=== PATIENT | female | born 1955 | race Caucasian/White ===

== ENCOUNTER 2016-09-30 14:10 | Emergency (ER) | payer OTHER ==
[~2016-09-30] VITALS: Ht 160 cm; Wt 88.5 kg
[~2016-09-30 14:10] MED LIST: ALEVE220 MG PO; CLONAZEPAM1 MG PO; MOXIFLOXACIN H400 M1 PO; NASONEX0.05 MG/Ac NAS
[2016-09-30] MEDS ORDERED: GABAPENTIN300 M2 PO (15:43)
--- NOTE | 2016-09-30 15:43 | ED UPPER/LOWER EXTREMITY COMPL ---
History of Present Illness General Chief Complaint: Lower Extremity Problems Stated Complaint: BILATERAL LEG PAIN Source: patient Exam Limitations: no limitations Vital Signs & Intake/Output Vital Signs & Intake/Output Vital Signs Date Time Temp Pulse Resp B/P Pulse O2 O2 Flow FiO2 Ox Delivery Rate 09/30 1415 97.5 66 18 147/98 98 Room Air Allergies Coded Allergies: MDX - Codeine (GI UPSET 11/10/14) MDX - Morphine (GI UPSET 11/10/14) Reconcile Medications Clonazepam 1 MG TABLET 1 TAB PO QPM RESTLESS LEGS (Reported) Gabapentin 300 MG CAPSULE 1 CAP PO QHS NERVE PAIN (Reported) Meloxicam (Mobic) 15 MG TABLET 1 TAB PO DAILY PRN PAIN Mometasone Furoate (Nasonex) 0.05 MG/Actuation SPR 2 SPRAY UZAIR DAILY SINUSITIS MOXIFLOXACIN HCL (Moxifloxacin HCl) 400 MG TABLET 1 TAB PO DAILY SINUSITIS Naproxen Sodium (Aleve) 220 MG TABLET 1 TAB PO PRN PAIN (Reported) Triage Note: 61 Y/O FEMALE C/O PAIN TO BILATERAL FEET, CALVES, THIGHS X OVER 1 YEAR. STATES SHE HAS BEEN TAKING GABAPENTIN FOR SAME BUT IT IS NOT WORKING. STATES "ITS A BURNING PULLING PAIN". PT AMBULATORY WITH STEADY GAIT. DENIES NOTING SWELLING, REDNESS OR BRUISING. Triage Nurses Notes Reviewed? yes Onset: Gradual Duration: worse persistent since, 1 year Timing: recent history Severity: moderate Severity Numbers: 8 Pain/Injury Location: Bilateral: Leg. Method of Injury: unknown Modifying Factors: Improves With: immobilization, pain medication. Worsens With: movement. HPI: Patient is a 61-year-old female presenting to the emergency department with chief complaint of bilateral leg pain nothing going on for the past one year. She reports that the pain has been getting getting worse over the past 1 week. She called her primary care physician who told her to come to the emergency department to rule out blood clots in her calves. She reports she's not had any imaging done on her legs. They thought it was nerve pain, she is has also seen a manufacturing engineering director. No one can seem to "diagnosis" her problem. Denies any new injury. Pain is worse at nighttime. Also history of restless leg syndrome. Takes gabapentin at nighttime and lorazepam. Denies numbness or tingling. She describes the pain as burning. Currently moderate. Has been taking ibuprofen with little relief. (CHELSEA MORRIS) Past History Travel History Traveled to [place] past 21 day No Medical History Any Pertinent Medical History? see below for history Neurological: RESTLESS LEG SYNDROME EENT: NONE Cardiovascular: NONE Respiratory: NONE Gastrointestinal: NONE Hepatic: NONE Renal: NONE Musculoskeletal: NONE Psychiatric: NONE Endocrine: NONE Blood Disorders: NONE FAMILY NURSE/Reproductive: endometriosis History of MRSA: No History of VRE: No History of CDIFF: No Surgical History Surgical History: non-contributory Psychosocial History Who do you live with Family Services at Home None What is your primary language Bulgarian Tobacco Use: Never used Family History Hx Contributory? No (CHELSEA MORRIS) Review of Systems Review of Systems Constitutional: Reports: no symptoms. Comments Review of systems: See HPI, All other systems negative. Constitutional, no chills fever or weight loss HEENT: No visual changes no sore throat no congestion Cardiovascular: No chest pain ,palpitation , orthopnea or ankle swelling Skin, no jaundice no rashes Respiratory: No dyspnea cough sputum or hemoptysis GI: No nausea no vomiting Muscle skeletal: no back pain, no neck pain, Neurologic: No numbness no confusion Psych: No increased stress anxiety or depression,. Heme/endocrine: No bruising no bleeding no polyuria or polydipsia Immunology: No splenectomy or history of AIDS (CHELSEA MORRIS) Physical Exam Physical Exam General Appearance: well developed/nourished, no apparent distress, alert, awake , comfortable Comments: Well-developed well-nourished person in no acute distress HEENT: Pupils equally round and reactive to light and accommodation. Nose is atraumatic. Neck: Normal inspection Back: Nontender, no CVA tenderness. Full range of motion Cardiovascular: normal JVP Respiratory: No respiratory distress. Extremity: No edema, positive bilateral calf tenderness to palpation. Calves are soft. No erythema. Pedal pulses are 2+ bilaterally. Full range of motion of lower extremities without difficulty or pain. Negative Childers Test bilaterally. Neuro: Alert oriented x3, motor sensory normal Skin: No appreciable rash on exposed skin, skin is warm and dry. Psych: Mood and affect is normal, memory and judgment is normal. (CHELSEA MORRIS) Progress Differential Diagnosis: contusion, dislocation, DVT, gout, sprain, tendon injury , neuropathic pain Plan of Care: Orders Procedure Date/time Status US-EXT BILAT VENOUS DOPPLER 09/30 1541 Active Diagnostic Imaging: Viewed by Me: Ultrasound. Discussed w/RAD: Ultrasound. Radiology Impression: PATIENT: ARMOND DALE PRESENT AGE: 61 PATIENT ACCOUNT NO: [id number] : 59 LOCATION: [facility], [place] ORDERING PHYSICIAN: CHELSEA CAMARGO SERVICE DATE: 09/30/16-1541 EXAM TYPE: US - US-EXT BILAT VENOUS DOPPLER EXAMINATION: US TRIPLEX LOWER EXTREMITY, BILATERAL CLINICAL INFORMATION: Bilateral calf pain. COMPARISON: None. TECHNIQUE: Color- flow triplex imaging with spectral analysis and compression Doppler were performed on the bilateral lower extremities. FINDINGS: Respiratory variation, normal compression and augmented flow are noted throughout the bilateral lower extremities. The visualized common femoral vein, proximal greater saphenous vein , femoral vein, profunda femoral vein, popliteal vein and visualized mid calf venous segments show no evidence of deep venous thrombosis. There is no Hernandez's cyst. IMPRESSION: Normal triplex scan without evidence of deep venous thrombosis involving the bilateral lower extremities. Comments: GIVEN IM TORADOL ON ARRIVAL FOR PAIN. LIKELY CHRONIC NEUORPATHY. NEGATIVE US. WILL INCREASE GABAPENTIN DOSING. PRN MOBIC. PCP FOLLOW UP. PT NON- TOXIC. (CHELSEA MORRIS) Departure Departure Time of Disposition: 1643 Disposition: HOME OR SELF CARE Condition: Stable Clinical Impression Primary Impression: Leg pain Qualifiers: Laterality: bilateral Qualified Codes: M79.604 - Pain in right leg; M79.605 - Pain in left leg Secondary Impressions: Neuropathic pain Referrals: HILARY CAMARGO,ELPIDIO SOLIMAN (PCP/Family) Additional Instructions: TAKE MOBIC DAILY TO HELP WITH PAIN AND INFLAMMATION. INCREASE DOSE OF GABAPENTIN TO 2 TABS A DAY FOR 2 DAYS THEN 3 TABES A DAY AFTER THAT. FOLLOW UP WITH YOUR PRIMARY CARE DOCTOR TO MANAGE YOUR PAIN. RETURN FOR WORSENING SYMPTOMS OR CONCERNS. Departure Forms: Customer Survey General Discharge Information Prescriptions: Current Visit Scripts Meloxicam (Mobic) 1 TAB PO DAILY PRN PAIN #14 TAB (CHELSEA MORRIS) PA/MODEL MAKING SUPERVISOR Co-Sign Statement Statement: ED Attending supervision documentation- [] I saw and evaluated the patient. I have also reviewed all the pertinent lab results and diagnostic results. I agree with the findings and the plan of care as documented in the PA's/MODEL MAKING SUPERVISOR's documentation. [X] I have reviewed the ED Record and agree with the PA's/MODEL MAKING SUPERVISOR's documentation. [] Additions or exceptions (if any) to the PAs/MODEL MAKING SUPERVISOR's note and plan are summarized below: [] (BRADY SANDHU,JULIANA)
--- NOTE | 2016-09-30 16:38 | ULTRASOUND REPORT ---
EXAMINATION: US TRIPLEX LOWER EXTREMITY, BILATERAL CLINICAL INFORMATION: Bilateral calf pain. COMPARISON: None. TECHNIQUE: Color-flow triplex imaging with spectral analysis and compression Doppler were performed on the bilateral lower extremities. FINDINGS: Respiratory variation, normal compression and augmented flow are noted throughout the bilateral lower extremities. The visualized common femoral vein, proximal greater saphenous vein, femoral vein, profunda femoral vein, popliteal vein and visualized mid calf venous segments show no evidence of deep venous thrombosis. There is no Hernandez's cyst. IMPRESSION: Normal triplex scan without evidence of deep venous thrombosis involving the bilateral lower extremities.
[2016-09-30] MEDS ORDERED: MOBIC15 M1 PO (16:46)
[2016-09-30 17:15] VITALS: BP 139/72
== END 2016-09-30 17:14 ==
LOC: ERH 14:10
DX: M79.605 Pain in left leg (principal); G62.9 Polyneuropathy, unspecified
CPT/HCPCS: 93970; 96372; J1885

== ENCOUNTER 2017-11-13 12:53 | Inpatient (IN) | payer OTHER ==
[~2017-11-13] VITALS: Ht 154.9 cm; Wt 88.0 kg
[~2017-11-13 12:53] MED LIST changes: +CLONAZEPAM1 M2 PO; -CLONAZEPAM1 MG PO; +GABAPENTIN300 M2 PO; +MOBIC15 M1 PO; +PREDNISONE10 M2 PO; +PROAIR HFA8.5 GM INH; +TESSALON PERLE100 M1 PO; +TRAMADOL HCL50 M1 PO
--- NOTE | 2017-11-13 18:31 | ED DYSPNEA/ASTHMA COMPLAINT ---
History of Present Illness General Chief Complaint: Dyspnea (COPD, CHF, Other) Stated Complaint: SOB COUGH WHEEZING Source: patient Exam Limitations: no limitations Vital Signs & Intake/Output Vital Signs & Intake/Output Vital Signs Date Time Temp Pulse Resp B/P B/P Pulse O2 O2 Flow FiO2 Mean Ox Delivery Rate 11/13 2239 96 11/13 2220 97.7 94 18 131/63 93 Room Air 11/13 1939 96 Room Air 11/13 1934 97.3 92 20 140/67 96 Room Air / 1924 94 / 1639 98.6 85 20 143/70 96 Room Air / 1443 100.8 / 1440 100.8 100 22 135/66 98 Room Air / 1306 97.4 99 22 163/90 97 Room Air Allergies Coded Allergies: codeine (GI UPSET 11/12/17) morphine (VOMITS VIOLENTLY 11/12/17) Reconcile Medications Albuterol Sulfate (Proair Hfa) 90 MCG HFA.AER.AD 2 PUF INH Q4H PRN RESP. ( Reported) Benzonatate (Tessalon Perle) 100 MG CAPSULE 1 CAP PO TID PRN cough Clonazepam (Unknown Strength) TABLET 1-2 TAB PO QPM RLS (Reported) Gabapentin 300 MG CAPSULE 1 CAP PO TID NERVE PAIN (Reported) Meloxicam (Mobic) 15 MG TABLET 1 TAB PO DAILY PRN PAIN Prednisone 10 MG TABLET 1 TAB PO DAILY PRN bronchitis 3 tabs po x 3 days, 2 tabs po x 3 days, 1 tab po x 3 days Tramadol HCl 50 MG TABLET 1 TAB PO BIDP PRN PAIN (Reported) Triage Note: C/O SOB, WORSENING COUGH AND CHEST DISCOMFORT X 7 DAYS. SEEN HERE FOR SAME, PUT ON TAMBIFLU, STEROID TAPER AND ZITHROMAX, ALSO SEEN [facility] W[facility], DXD WITH BRONCHITIS. TAMBIFLU, AND STEROID TAPER. Triage Nurses Notes Reviewed? yes Onset: Abrupt Duration: day(s): (6) Timing: recent history Severity: moderate, severe HPI: 62-year-old female comes into the emergency room for further evaluation of shortness of breath and coughing has been going on last Monday. She reports that she's had some mucus production at times before for the most part she feels that she cannot getting the mucus up. She denies any vomiting. She denies any chest pain. She's had some intermittent fevers. She was diagnosed with influenza by her PCP as well as urgent care center. She finished a course of Tamiflu. She was seen here yesterday and diagnosed bronchitis. She has 1 more day on a Z-Chris. She reports that she had increased shortness of breath last night. She is very displeased with the fact that she waited 5 hours on the waiting room and she is complaining that she is here in the hallway and refused to be seen in the hallway. She does not want any treatment here in the hallway. (Juan Baker) Past History Travel History Traveled to [place] past 21 day No Medical History Any Pertinent Medical History? 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 No (Juan Baker) Review of Systems Review of Systems Constitutional: Reports: see HPI. EENTM: Reports: see HPI. Respiratory: Reports: see HPI. Cardiovascular: Reports: no symptoms. GI: Reports: no symptoms. Genitourinary: Reports: no symptoms. Musculoskeletal: Reports: no symptoms. Skin: Reports: no symptoms. Neurological/Psychological: Reports: no symptoms. Hematologic/Endocrine: Reports: no symptoms. Immunologic/Allergic: Reports: no symptoms. All Other Systems: Reviewed and Negative (Juan Baker) Physical Exam Physical Exam General Appearance: well developed/nourished, alert, awake Head: atraumatic Eyes: Bilateral: normal appearance. Ears, Nose, Throat: normal ENT inspection, hearing grossly normal Neck: normal inspection Respiratory: decreased breath sounds, rhonchi, wheezing Cardiovascular: regular rate/rhythm Extremities: normal inspection Neurologic/Psych: awake, alert, oriented x 3, normal gait Skin: intact, normal color Core Measures ACS in differential dx? No CVA/TIA Diagnosis No Sepsis Present: No Sepsis Focused Exam Completed? No (Gilson CAMARGO,Juan) Progress Differential Diagnosis: asthma, AMI, bronchitis, costochondritis, CHF, COPD, musculoskeletal pain, pericarditis, pulmonary embolism, pneumonia, rib fracture, unstable angina Plan of Care: Orders Procedure Date/time Status Nothing by Mouth 11/14 B Active Saline Lock 11/13 2233 Active Misc Message 11/13 2233 Active ED Holding Orders 11/13 2233 Active Admit to inpatient 11/13 2233 Active Vital Signs 11/13 2233 Active Code Status 11/13 2233 Active D-DIMER 11/13 185 Complete TROPONIN LEVEL 11/13 1830 Complete COMPREHENSIVE METABOLIC PANEL 11/13 1830 Complete CBC WITHOUT DIFFERENTIAL 11/13 1830 Active EKG 11/13 125 Active Laboratory Tests 11/13/17 1930: Anion Gap 15, Estimated GFR > 60, BUN/Creatinine Ratio 26.7 H, Glucose 114 H, Calcium 9.8, Total Bilirubin 0.5, AST 16, ALT 28, Alkaline Phosphatase 98, Troponin I < 0.01, Total Protein 7.3, Albumin 4.7, Globulin 2.6, Albumin/ Globulin Ratio 1.8, D-Dimer High Sensitivty 402 H, CBC w Diff MAN DIFF ORDERED, RBC 4.40, MCV 86.9, MCH 29.6, MCHC 34.1, RDW 13.7, MPV 7.6, Gran % 83.4 H, Lymphocytes % 13.5 L, Monocytes % 2.8, Eosinophils % 0, Basophils % 0.3, Absolute Granulocytes 13.4 H, Segmented Neutrophils Pending, Absolute Lymphocytes 2.2, Absolute Monocytes 0.5, Absolute Eosinophils 0, Absolute Basophils 0.1 Microbiology 11/13 1830 NASOPHARYN: Influenza Virus A & B Rapid Smear - CAN Cancelled: Cancelled via OE: Patient Refused Diagnostic Imaging: Viewed by Me: CT Scan. Discussed w/RAD: CT Scan. Radiology Impression: PATIENT: ARMOND DALE PRESENT AGE: 62 PATIENT ACCOUNT NO: [id number] : 59 LOCATION: [facility] ([place]) ORDERING PHYSICIAN: Juan CAMARGO SERVICE DATE: 11/13/17 EXAM TYPE: CAT - CTA CHEST-PULMONARY EMBOLISM EXAMINATION: CT ANGIOGRAM CHEST WITH AND WITHOUT CONTRAST (CT PULMONARY ANGIOGRAM FOR PE) CLINICAL INFORMATION: Presumptive diagnosis shortness of breath, cough, elevated D-dimer, rule out PE. COMPARISON: None TECHNIQUE: Prior to contrast administration, noncontrast localization images were obtained. Subsequently, multidetector volumetric imaging was performed from the thoracic inlet to below the diaphragms following the administration of 80 mL Omnipaque 350 intravenous contrast. No contrast reaction reported. Sagittal, coronal, and MIP oblique sagittal reformatted images were obtained on the CT workstation, uploaded to PACS, and reviewed. FINDINGS: QUALITY OF STUDY/CONTRAST BOLUS: Satisfactory. PULMONARY ARTERIES: No evidence of filling defects to indicate central or segmental pulmonary emboli. THORACIC AORTA: No aneurysm or dissection. LUNG: Linear bands of opacity in the right lower lung, likely atelectasis. No focal consolidation. Mild linear opacities in the inferior lingula and left lower lobe, likely atelectasis. There are foci of reticular nodular opacities, with tree-in-bud configuration in the left lower lobe. This may reflect infectious or inflammatory process. PLEURA: No pleural effusion or pneumothorax. MEDIASTINUM: Normal heart size. No pericardial effusion. No hilar or mediastinal lymphadenopathy. No evidence of septal bowing or right heart strain. Subtle hypodensity in the left thyroid lobe. CHEST WALL/ AXILLA: No axillary or internal mammary lymphadenopathy. OSSEOUS STRUCTURES: No acute or suspicious osseous abnormality. Multilevel degenerative changes in the spine. UPPER ABDOMEN: Unremarkable. No reflux of contrast into the hepatic veins to suggest elevated right heart pressures. IMPRESSION: 1. No evidence of central or segmental pulmonary emboli. 2. Foci of reticular nodular opacities with tree- in-bud configuration in the left lower lobe. Differential consideration include infectious or inflammatory processes. Follow-up imaging post-treatment can be obtained to ensure resolution. 3. Foci of atelectasis in bilateral lungs as detailed above. 4. Indeterminate subtle hypodensity in the left thyroid lobe. This can be further characterized with a nonemergent thyroid ultrasound, as clinically warranted. VTE: Negative. DICTATED BY: Julian Nascimento MD DATE/TIME DICTATED:11/13/172147 SALES SUPPORT ADVISOR:FERNY DATE/TIME TRANSCRIBED:2147 CONFIDENTIAL, DO NOT COPY WITHOUT APPROPRIATE AUTHORIZATION. < Electronically signed in Other Vendor System> SIGNED BY: Julina Nascimento MD 03/01/263 Initial ED EKG: normal sinus rhythm, rate (99) Comments: 11/13/2017 7:00:09 PM Discharge nurse was notified of the patient's complaints. Patient is going to be moved into room 11 shortly in a few minutes. (Juan Baker) Departure Departure Disposition: STILL A PATIENT Condition: Stable Referrals: Marianela Rodriguez (PCP/Family) Departure Forms: Customer Survey General Discharge Information Admission Note Spoke With: Sarthak Alcala MD Documentation of Exam: Documentation of any treatments & extenuating circumstances including Concerns Regarding Discharge (functional status, medication knowledge or non-compliance, living conditions, etc.) that warrant an admission rather than observation: Patient is still tachypnea after DuoNeb and IV Solu-Medrol. She has failed outpatient treatment with oral antibiotics and oral prednisone. With minimal ambulation she gets very short of breath and winded and tachypnic. She will require IV steroids. IV antibiotics. Pulmonary consult. Former smoker. supplemental oxygen. Medically not safe for discharge at this time. On reevaluation she is still wheezing and rhonchorous. (Juan Baker) Departure Clinical Impression Primary Impression: Pneumonia Secondary Impressions: Bronchitis, Sepsis PA/DIRECTOR OF CURRICULUM AND INSTRUCTION Co-Sign Statement Statement: ED Attending supervision documentation- [x] I saw and evaluated the patient. I have also reviewed all the pertinent lab results and diagnostic results. I agree with the findings and the plan of care as documented in the PA's/DIRECTOR OF CURRICULUM AND INSTRUCTION's documentation. 11/13/17, 22:37... pt with dyspnea at rest, wheezing... failed outpatient abx, meets criteria for sepsis... merits admission for iv steroids/iv abx, 02 support. [] I have reviewed the ED Record and agree with the PA's/DIRECTOR OF CURRICULUM AND INSTRUCTION's documentation. [] Additions or exceptions (if any) to the PAs/DIRECTOR OF CURRICULUM AND INSTRUCTION's note and plan are summarized below: [] (Joseph SANDHU,Guillaume Blood) Critical Care Note Critical Care Note Critical Care Time: 30-74 min (40) (Juan Baker) Critical Care Note Critical Care Time: 30-74 min (Joseph SANDHU,Guillaume Blood)
[2017-11-13 19:46] LABS: ABSOLUTE BASOPHIL COUNT 0.1 /CUMM (0.0-0.2); ABSOLUTE EOSINOPHIL COUNT 0 /CUMM (0.0-0.7); ABSOLUTE GRANULOCYTE CT 13.4 /CUMM (1.4-6.5); ABSOLUTE LYMPH COUNT 2.2 /CUMM (1.2-3.4); ABSOLUTE MONOCYTE COUNT 0.5 /CUMM (0.10-0.60); BASOPHIL % 0.3 % (0.0-2.0); EOSINOPHIL % 0 % (0-5); HEMATOCRIT 38.2 % (37-47); MEAN CORPUSCULAR HGB 29.6 PG (27.0-31.0); MEAN CORPUSCULAR HGB CONC 34.1 G/DL (33.0-37.0); MEAN CORPUSCULAR VOLUME 86.9 FL (81.0-99.0); MEAN PLATELET VOLUME 7.6 FL (7.4-10.4); PLATELET COUNT 351 /CUMM (130-400); RBC DISTRIBUTION WIDTH 13.7 % (11.5-14.5)
[2017-11-13 19:51] LABS: GRANULOCYTE % 83.4 % (42.2-75.2); WHITE BLOOD CELL COUNT 16.1 /CUMM (4.8-10.8)
--- NOTE | 2017-11-13 22:23 | CT SCAN REPORT ---
EXAMINATION: CT ANGIOGRAM CHEST WITH AND WITHOUT CONTRAST (CT PULMONARY ANGIOGRAM FOR PE) CLINICAL INFORMATION: Presumptive diagnosis shortness of breath, cough, elevated D-dimer, rule out PE. COMPARISON: None TECHNIQUE: Prior to contrast administration, noncontrast localization images were obtained. Subsequently, multidetector volumetric imaging was performed from the thoracic inlet to below the diaphragms following the administration of 80 mL Omnipaque 350 intravenous contrast. No contrast reaction reported. Sagittal, coronal, and MIP oblique sagittal reformatted images were obtained on the CT workstation, uploaded to PACS, and reviewed. FINDINGS: QUALITY OF STUDY/CONTRAST BOLUS: Satisfactory. PULMONARY ARTERIES: No evidence of filling defects to indicate central or segmental pulmonary emboli. THORACIC AORTA: No aneurysm or dissection. LUNG: Linear bands of opacity in the right lower lung, likely atelectasis. No focal consolidation. Mild linear opacities in the inferior lingula and left lower lobe, likely atelectasis. There are foci of reticular nodular opacities, with tree-in-bud configuration in the left lower lobe. This may reflect infectious or inflammatory process. PLEURA: No pleural effusion or pneumothorax. MEDIASTINUM: Normal heart size. No pericardial effusion. No hilar or mediastinal lymphadenopathy. No evidence of septal bowing or right heart strain. Subtle hypodensity in the left thyroid lobe. CHEST WALL/AXILLA: No axillary or internal mammary lymphadenopathy. OSSEOUS STRUCTURES: No acute or suspicious osseous abnormality. Multilevel degenerative changes in the spine. UPPER ABDOMEN: Unremarkable. No reflux of contrast into the hepatic veins to suggest elevated right heart pressures. IMPRESSION: 1. No evidence of central or segmental pulmonary emboli. 2. Foci of reticular nodular opacities with tree-in-bud configuration in the left lower lobe. Differential consideration include infectious or inflammatory processes. Follow-up imaging post-treatment can be obtained to ensure resolution. 3. Foci of atelectasis in bilateral lungs as detailed above. 4. Indeterminate subtle hypodensity in the left thyroid lobe. This can be further characterized with a nonemergent thyroid ultrasound, as clinically warranted. VTE: Negative.
--- NOTE | 2017-11-13 23:18 | History & Physical ---
Felipe SANDHU,Lyn 11/13/17 0919: General Information and [facility] MD Statement: I have seen and personally examined ARMOND PA and documented this H&P. The patient is a 62 year old F who presented with a patient stated chief complaint of dyspnea, cough, wheezing for 6 days Source of Information: patient, old records Exam Limitations: no limitations History of Present Illness: Patient is a 62-year-old female with a past medical history of restless leg syndrome, endometriosis, borderline diabetes, chronic lower back pain, arthritis that comes to see us for dyspnea, cough, wheezing last Monday. The patient states that on she called her primary care doctor who prescribed her Tamiflu. The next day, when her cough was worse, she went to urgent care who did a chest x-ray and gave her breathing treatments and a course of azithromycin. When this did nothing to help her respiratory symptoms she came to see us yesterday, had chest x-ray which showed no evidence of acute cardiopulmonary process, was given DuoNeb treatments, Solu-Medrol, Tessalon Perles, Mucinex, IV azithromycin, discharged on a prednisone taper. However, today, the patient states that she feels worse. She states that her wheezing has gotten worse, shortness of breath, she has a cough, now productive of yellow phlegm. She denies any fever, chills, diaphoresis, chest pain, palpitations, orthopnea, shortness of breath on exertion. She states that last night she vomited twice. The patient denies any sick contacts or travel history. No industrial or occupational exposures to respiratory irritants. The patient also denies any constipation/diarrhea, hot or cold intolerance, skin changes, weight changes, hoarseness, weakness, muscle pains other than her chronic back pain, thinning hair, depression, known enlargement of thyroid gland, tremor, palpitations. 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 The patient states that she smoked for 20 years, 4-5 cigarettes a day but quit 8 years ago. She states that she has no issues with alcohol, does no drugs. Allergies/Medications Allergies: Coded Allergies: codeine (GI UPSET 11/12/17) morphine (VOMITS VIOLENTLY 11/12/17) Home Med list Albuterol Sulfate (Proair Hfa) 90 MCG HFA.AER.AD 2 PUF INH Q4H PRN RESP. ( Reported) Benzonatate (Tessalon Perle) 100 MG CAPSULE 1 CAP PO TID PRN cough Clonazepam (Unknown Strength) TABLET 1-2 TAB PO QPM RLS (Reported) Gabapentin 300 MG CAPSULE 1 CAP PO TID NERVE PAIN (Reported) Meloxicam (Mobic) 15 MG TABLET 1 TAB PO DAILY PRN PAIN Prednisone 10 MG TABLET 1 TAB PO DAILY PRN bronchitis 3 tabs po x 3 days, 2 tabs po x 3 days, 1 tab po x 3 days Tramadol HCl 50 MG TABLET 1 TAB PO BIDP PRN PAIN (Reported) Past History Travel History Traveled to [place] past 21 day No Medical History Neurological: RESTLESS LEG SYNDROME EENT: NONE Cardiovascular: NONE Respiratory: NONE Gastrointestinal: NONE Hepatic: NONE Renal: NONE Musculoskeletal: chronic back pain Psychiatric: NONE Endocrine: NONE Blood Disorders: NONE 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 Psychosocial History Services at Home: None ETOH Use: occasional use Review of Systems Review of Systems Constitutional: Reports: no symptoms. EENTM: Reports: no symptoms. Cardiovascular: Reports: no symptoms. Respiratory: Reports: cough, short of breath, sputum production, wheezing. GI: Reports: no symptoms. Genitourinary: Reports: no symptoms. Musculoskeletal: Reports: back pain. Skin: Reports: no symptoms. Neurological/Psychological: Reports: no symptoms. Hematologic/Endocrine: Reports: no symptoms. Immunologic/Allergic: Reports: no symptoms. All Other Systems: Reviewed and Negative Exam & Diagnostic Data Last 24 Hrs of Vital Signs/I&O Vital Signs Date Time Temp Pulse Resp B/P B/P Pulse O2 O2 Flow FiO2 Mean Ox Delivery Rate 11/13 2239 96 11/13 2220 97.7 94 18 131/63 93 Room Air / 1939 96 Room Air / 193 97.3 92 20 140/67 96 Room Air / 1924 94 / 1639 98.6 85 20 143/70 96 Room Air / 1443 100.8 / 1440 100.8 100 22 135/66 98 Room Air 03/ 1306 97.4 99 22 163/90 97 Room Air Intake & Output 11/14 0800 11/14 0000 11/13 1600 Intake Total Output Total Balance Patient 194 lb Weight Weight Reported by Patient Measurement Method Physical Exam General Appearance Alert, Oriented X3, Cooperative, Mild Distress Skin No Rashes, No Breakdown, No Significant Lesion Skin Temp/Moisture Exam: Warm/Dry Sepsis Skin Exam (color): Normal for Ethnicity HEENT Atraumatic, PERRLA, EOMI, Mucous Membr. moist/pink Neck Supple, No JVD, No thryomegaly Lymphatic no lymphadenopathy Cardiovascular Regular Rate, Normal S1, Normal S2, No Murmurs, Gallops, Rubs Lungs decreased breath sounds, rhonchi, wheezing throughout Abdomen Normal Bowel Sounds, Soft, No Tenderness, No Hepatospenomegaly, No Masses Neurological Normal Speech Extremities No Clubbing, No Cyanosis, No Edema, Normal Pulses, No Tenderness/ Swelling Vascular Normal Pulses, Pulses Symmetrical Sepsis Peripheral Pulse Location: Radial Sepsis Peripheral Pulse Exam: Normal Sepsis Cap Refill Exam: <2 Sec Last 24 Hrs of Labs/Dinh: Laboratory Tests 11/13/17 1930: Anion Gap 15, Estimated GFR > 60, BUN/Creatinine Ratio 26.7 H, Glucose 114 H, Calcium 9.8, Total Bilirubin 0.5, AST 16, ALT 28, Alkaline Phosphatase 98, Troponin I < 0.01, Total Protein 7.3, Albumin 4.7, Globulin 2.6, Albumin/ Globulin Ratio 1.8, D-Dimer High Sensitivty 402 H, CBC w Diff MAN DIFF ORDERED, RBC 4.40, MCV 86.9, MCH 29.6, MCHC 34.1, RDW 13.7, MPV 7.6, Gran % 83.4 H, Lymphocytes % 13.5 L, Monocytes % 2.8, Eosinophils % 0, Basophils % 0.3, Absolute Granulocytes 13.4 H, Segmented Neutrophils 87 H, Absolute Lymphocytes 2.2, Lymphocytes 11 L, Monocytes 2, Absolute Monocytes 0.5, Absolute Eosinophils 0, Absolute Basophils 0.1, Platelet Estimate VERIFIED BY SMEAR, Normocytic RBCs VERIFIED, Normochromic RBCs VERIFIED, Fld Total RBCs Counted 100 Microbiology 11/14 20 URINE ROUT: Legionella Antigen - COMP 11/14 20 URINE ROUT: Streptococcus pneumoniae Antigen (M - COMP 11/14 18 LOWER RESP: Respiratory Culture - ORD 03/06 0019 LOWER RESP: Gram Stain - ORD 11/13 1831 NASOPHARYN: Influenza Virus A & B Rapid Smear - CAN Cancelled: Cancelled via OE: Patient Refused Assessment/Plan Assessment: Patient is a 62-year-old female with a past medical history of restless leg syndrome, endometriosis, borderline diabetes, chronic lower back pain, arthritis that comes to see us for dyspnea, cough, wheezing last Monday. Prescribed Tamifu and a course of azithromycin from urgent care and her PCP. Came to our ED yesterday, had chest x-ray which showed no evidence of acute cardiopulmonary process, was given treatment for bronchitis including steroid taper. Now returns with same symptoms. In the ED, patient found to have initial temperature 97.4 which increased to 100.8, pulse from 85-100, respiratory rate around 20, blood pressure 163/90 on admission that decreased to 131/63, good oxygen saturation on room air. WBC count found to be 16.1 with high granulocytes, d-dimer of 402, all other labs normal including troponin. Chest x-ray done yesterday found no evidence of acute cardiopulmonary process. CTA today showed no PE but foci of reticular nodule opacities with "tree-in-bud" configuration and left lower lobe suggestive of infectious or inflammatory process, atelectasis, and an indeterminate subtle hypodensity in the left thyroid lobe. EKG showed normal sinus rhythm at a rate of 99. Thus patient is septic secondary to pneumonia. Patient's differential includes pneumonia, bronchitis, COPD (the patient has no history of COPD diagnosed), PE, acute coronary syndrome, CHF. She does have a history of smoking. She is febrile, tachycardic, with elevated wbc but chest x- ray from yesterday shows no evidence of pneumonia, however evidence of pneumonia on CTA so pneumonia is working diagnosis. CTA shows no evidence of PE. Troponin and EKG negative for acute coronary syndrome. Evidence of CHF not seen on chest x-ray although patient has never had echocardiogram. Additionally hypodensity was found in the patient's left thyroid lobe which will need to be worked up. Of note patient has had no symptoms of hypo/hyperthyroidism. Plan Upper respiratory symptomsm sepsis secondary to pneumonia - resistant to treatment for solely bronchitis. -Urine strep and Legionella antigens -Flu swab not done, refused by patient and she states that she was already diagnosed with the flu -Ceftriaxone 1 g daily -Azithromycin 500 mg daily -Solu-Medrol 40 every 8 for wheezing -Mucinex 600 mg twice a day -TRC/nebs -Lower respiratory culture Thyroid nodule seen on CTA -Thyroid function tests with potential ultrasound/biopsy depending on results Chronic medical problems -Clonopin and gabapentin for patient's restless leg syndrome -Tramadol and meloxicam for chronic back pain and arthritis Lovenox and Alps for DVT prophylaxis Regular diet Full code As Ranked By This Provider Problem List: 1. Bronchitis 2. Pneumonia Core Measures/Misc (05/28) Acute Coronary Syndrome ACS Diagnosis: No Congestive Heart Failure Congestive Heart Failure Diagnosis No Cerebrovascular Accident CVA/TIA Diagnosis: No VTE (View Protocol) VTE Risk Factors Acute Medical Illness No Mechanical VTE Prophylaxis d/t N/A MechProphylax Ordered No VTE Pharm Prophylaxis d/t NA PharmProphylax ordered Sepsis (View protocol) Sepsis Present: Yes Fredrick SANDHU, [facility] 11/14/17 0815: Attending MD Review Statement Attending Statement Attending MD Statement: examined this patient, discuss w/resident/PA/ORTHOPEDIC CAST SPECIALIST, agreed w/resident/PA/ORTHOPEDIC CAST SPECIALIST, reviewed images, amended to note Attending Assessment/Plan: 62 yo F with h/o RLS, borderline diabetes, chronic back pain (follows Dr. Bedoya pain management), is a former smoker, who is here for evaluation of worsening dyspnea, cough and wheezing. Symptoms are ongoing for the past 1 week, with cough/ fevers - initially PCP prescribed her Tamiflu, since cough did not get better patient was seen at an Urgent care tested flu negative and was prescribed Zpak for bronchitis. Despite this her symptoms did not get better, so she came to [place] [facility] 1 day prior, was prescribed tessalon and prednisone. She reports her breathing got worse with wheezing and hence she came to ER. She c/o congestion and is unable to bring up phlegm. She has never been diagnosed with COPD or asthma. 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 Vitals: Tmax 100.8, otherwise stable. She was ambulated in the ER, sats were 94% RA but she was evidently short of breath. Chest b/l expiratory wheeze, reduced breath sounds+. Labs: WBC 16.1, D-dimer 402, trop neg. Chest CTA: no PE. Foci of reticular nodular opacities with tree-in-bud appearance in left lower lobe. Atelectasis in bilateral lungs. Hypodensity in left thyroid lobe. Assessment and plan: 1. Acute bronchitis 2. SIRS/ sepsis 3. LLL pneumonia, community acquired 4. Failed outpatient therapy 5. COPD exacerbation (former smoker) 6. Borderline diabetes 7. Leukocytosis likely steroid induced - Admit to general medicine - TR nebs - Sputum culture, urine legionella and strep Ag - Panculture - IV ceftriaxone and azithro - IV steroids Q8 - IV fluids - Mucinex BID - Check TSH and Free T4 (thyroid density left lobe) - continue home meds tramadol, meloxicam, gabapentin, klonopin DVT ppx Lovenox. Full code. Alba Meraz 11/14/17 0834: Resident Review Statement Resident Statement: examined this patient, discussed with gallery intern, agreed with gallery intern, discussed with family, discussed with nursing, reviewed images Other Findings: Mrs. Pa is a 62 yo lady with PMHx. borderline diabetes, back pain, presented to ED with a c/o worsening SOB. Patient was recently on tamiflu as prophylaxis as she works at a [employer] facility with exposure with sick people, last week she was started on Z-pack for bronchitis, yesterday she was at our ED discharged on prednisone taper and robitussin. She report worsening of the symptoms with fever so, she came back. At ED she spiked fever up to 100.8, tachy 100, BP:163/90mmgh, CTA was done which was significant for focal reticular nodular opacities with tree in bud configuration in the left lower lobe, with hypodenisities in the Lt. thyroid lobe, will admitt the patient to general medicine floor, will start azithromycin , ceftriaxone, will continue solu-medrol 40mg q8hr, trc/nebs, mucinex, culture was sent please f/u. dvt ppx. sc lovenox, FC
--- NOTE | 2017-11-14 08:17 | Admission Certification ---
Admission Certification Certification Statement - As attending physician, I certify that at the time of - admission, based on clinical presentation, severity of - symptoms, need for further diagnostic testing and - therapeutic interventions, and risk of adverse outcomes - without in-hospital treatment, in my clinical assessment, - this patient requires an acute hospital stay for a minimum - of two nights or longer. I have also considered psychsocial - factors such as support system, advanced age, financial - issues, cognitive issues, and failed out-patient treatments, - past re-admission history, safety of patient, and lack of - compliance as applicable. Specific rationale supporting this admission is: Bronchitis, community acquired pneumonia, COPD exacerbation, failed outpatient therapy.
[2017-11-14 08:46] LABS: ABSOLUTE BASOPHIL COUNT 0 /CUMM (0.0-0.2); ABSOLUTE EOSINOPHIL COUNT 0 /CUMM (0.0-0.7); ABSOLUTE LYMPH COUNT 1.4 /CUMM (1.2-3.4); ABSOLUTE MONOCYTE COUNT 0.1 /CUMM (0.10-0.60); BASOPHIL % 0 % (0.0-2.0); EOSINOPHIL % 0 % (0-5); GRANULOCYTE % 91.4 % (42.2-75.2); HEMATOCRIT 34.4 % (37-47); MEAN CORPUSCULAR HGB CONC 33.6 G/DL (33.0-37.0); MEAN CORPUSCULAR VOLUME 86.4 FL (81.0-99.0); MEAN PLATELET VOLUME 8.4 FL (7.4-10.4); PLATELET COUNT 269 /CUMM (130-400); RBC DISTRIBUTION WIDTH 13.4 % (11.5-14.5); RED BLOOD CELL CT 3.98 /CUMM (4.20-5.40)
[2017-11-14 09:35] VITALS: BP 127/71
[2017-11-14 09:59] LABS: WHITE BLOOD CELL COUNT 17.5 /CUMM (4.8-10.8)
--- NOTE | 2017-11-14 11:14 | PN- Att Addend ---
Attending Addendum Attending Brief Note Patient seen/examined bedside. She c/o cough and h/o smoking in past, never had PFTs. Minimal use of accessory muscles. Imaging noted CT chest with left lower lobe tree in bud appearance Assessment and plan: 1. Acute bronchitis 2. SIRS/ sepsis 3. LLL pneumonia, community acquired 4. Failed outpatient therapy 5. Borderline diabetes 6. Leukocytosis likely steroid induced - Admit to general medicine - C nebs - Sputum culture, urine legionella and strep Ag - f/u Panculture - IV ceftriaxone and azithro, complete tamoflu today - Discontinue steroids. - IV fluids - Mucinex BID - f/u TSH and Free T4 (thyroid density left lobe) - continue home meds tramadol, meloxicam, gabapentin, klonopin - o/p referral for PFTs. DVT ppx Lovenox. Full code. Admission Lab Results I reviewed the following labs: Laboratory Tests 11/14 0823 Chemistry Sodium (137 - 145 mmol/L) 143 Potassium (3.5 - 5.1 mmol/L) 4.0 Chloride (98 - 107 mmol/L) 106 Carbon Dioxide (22 - 30 mmol/L) 20 L Anion Gap (5 - 16) 17 H BUN (7 - 17 mg/dL) 19 H Creatinine (0.5 - 1.0 mg/dL) 0.6 Estimated GFR (>60 ml/min) > 60 BUN/Creatinine Ratio (7 - 25 %) 31.7 H Free T4 (0.78 - 2.44 ng/dL) 1.19 Total T3 (0.97 - 1.69 ng/mL) Pending TSH &T3 &Free T4 Intrp (0.270 - 4.20 uIU/mL) 0.124 L Hematology CBC w Diff NO MAN DIFF REQ WBC (4.8 - 10.8 /CUMM) 17.5 H RBC (4.20 - 5.40 /CUMM) 3.98 L Hgb (12.0 - 16.0 G/DL) 11.6 L Hct (37 - 47 %) 34.4 L MCV (81.0 - 99.0 FL) 86.4 MCH (27.0 - 31.0 PG) 29.0 MCHC (33.0 - 37.0 G/DL) 33.6 RDW (11.5 - 14.5 %) 13.4 Plt Count (130 - 400 /CUMM) 269 MPV (7.4 - 10.4 FL) 8.4 Gran % (42.2 - 75.2 %) 91.4 H Lymphocytes % (20.5 - 51.1 %) 8.2 L Monocytes % (1.7 - 9.3 %) 0.4 L Eosinophils % (0 - 5 %) 0 Basophils % (0.0 - 2.0 %) 0 Absolute Granulocytes (1.4 - 6.5 /CUMM) 16.0 H Absolute Lymphocytes (1.2 - 3.4 /CUMM) 1.4 Absolute Monocytes (0.10 - 0.60 /CUMM) 0.1 Absolute Eosinophils (0.0 - 0.7 /CUMM) 0 Absolute Basophils (0.0 - 0.2 /CUMM) 0 03/05 1930 Chemistry Sodium (137 - 145 mmol/L) 142 Potassium (3.5 - 5.1 mmol/L) 3.8 Chloride (98 - 107 mmol/L) 103 Carbon Dioxide (22 - 30 mmol/L) 24 Anion Gap (5 - 16) 15 BUN (7 - 17 mg/dL) 16 Creatinine (0.5 - 1.0 mg/dL) 0.6 Estimated GFR (>60 ml/min) > 60 BUN/Creatinine Ratio (7 - 25 %) 26.7 H Glucose (65 - 99 mg/dL) 114 H Calcium (8.4 - 10.2 mg/dL) 9.8 Total Bilirubin (0.2 - 1.3 mg/dL) 0.5 AST (14 - 36 U/L) 16 ALT (9 - 52 U/L) 28 Alkaline Phosphatase (<127 U/L) 98 Troponin I (< 0.11 ng/ml) < 0.01 Total Protein (6.3 - 8.2 g/dL) 7.3 Albumin (3.5 - 5.0 g/dL) 4.7 Globulin (1.9 - 4.2 gm/dL) 2.6 Albumin/Globulin Ratio (1.1 - 2.2 %) 1.8 Coagulation D-Dimer High Sensitivty (0 - 243 ng/ml) 402 H Hematology CBC w Diff MAN DIFF ORDERED WBC (4.8 - 10.8 /CUMM) 16.1 H RBC (4.20 - 5.40 /CUMM) 4.40 Hgb (12.0 - 16.0 G/DL) 13.0 Hct (37 - 47 %) 38.2 MCV (81.0 - 99.0 FL) 86.9 MCH (27.0 - 31.0 PG) 29.6 MCHC (33.0 - 37.0 G/DL) 34.1 RDW (11.5 - 14.5 %) 13.7 Plt Count (130 - 400 /CUMM) 351 MPV (7.4 - 10.4 FL) 7.6 Gran % (42.2 - 75.2 %) 83.4 H Lymphocytes % (20.5 - 51.1 %) 13.5 L Monocytes % (1.7 - 9.3 %) 2.8 Eosinophils % (0 - 5 %) 0 Basophils % (0.0 - 2.0 %) 0.3 Absolute Granulocytes (1.4 - 6.5 /CUMM) 13.4 H Segmented Neutrophils (42.2 - 75.2 %) 87 H Absolute Lymphocytes (1.2 - 3.4 /CUMM) 2.2 Lymphocytes (20.5 - 51.1 %) 11 L Monocytes (1.7 - 9.3 %) 2 Absolute Monocytes (0.10 - 0.60 /CUMM) 0.5 Absolute Eosinophils (0.0 - 0.7 /CUMM) 0 Absolute Basophils (0.0 - 0.2 /CUMM) 0.1 Platelet Estimate (ADEQUATE) VERIFIED BY SMEAR Normocytic RBCs VERIFIED Normochromic RBCs VERIFIED Other Body Source Fld Total RBCs Counted (%) 100
--- NOTE | 2017-11-14 11:17 | PN- Housestaff ---
Subjective Follow-up For: Upper respiratory symptomsm sepsis secondary to pneumonia Subjective: Patient visited today, lying in bed in no distress, reported imprved SOB. No other events over night Planned to complete tamiflu course. Review of Systems Constitutional: Reports: see HPI. Objective Last 24 Hrs of Vital Signs/I&O Vital Signs Date Time Temp Pulse Resp B/P B/P Pulse O2 O2 Flow FiO2 Mean Ox Delivery Rate 11/14 1600 Room Air 11/14 1428 98.2 110 22 144/73 93 Room Air / 1315 95 Room Air / 1140 98.6 76 18 126/84 98 Room Air 03/ 0936 93 Room Air 03/ 0935 97.9 79 20 127/71 93 Room Air / 0844 Room Air / 0836 97 Room Air / 0712 97.9 79 20 127/71 93 Room Air 03/05 2239 96 03/05 2220 97.7 94 18 131/63 93 Room Air 03/05 1939 96 Room Air 03/ 1934 97.3 92 20 140/67 96 Room Air 03/05 1924 94 Intake & Output 11/14 1600 / 0800 03/ 0000 Intake Total 540 Output Total Balance 540 Intake, Oral 540 Patient 194 lb Weight Weight Reported by Patient Measurement Method Physical Exam General Appearance: Alert, Oriented X3, Cooperative, No Acute Distress HEENT: Atraumatic, EOMI, Mucous Membr. moist/pink Cardiovascular: Normal S1, Normal S2 Lungs: bilateral Wheezing in AM, imprved later during the day Abdomen: Soft, No Tenderness Neurological: Normal Speech Current Medications: Current Medications Sig/Leon Start time Last Medication Dose Route Stop Time Status Admin Albuterol Sulfate 3 ML TID 11/14 1000 AC 11/14 INH 1315 Albuterol Sulfate 3 ML ONCE ONE 11/13 1900 DC 11/13 INH 11/13 1901 1924 Azithromycin 500 MG DAILY 11/14 1000 AC 11/14 Dextrose/Water 250 ML IV 0933 Ceftriaxone Sodium 1,000 MG DAILY 11/14 1000 AC 11/14 IV 0933 Clonazepam 0.5 MG QPM 11/14 2200 AC PO 11/21 2159 Enoxaparin Sodium 40 MG DAILY 11/14 1000 AC 11/14 SC 0933 Gabapentin 300 MG TID 11/14 1000 AC 11/14 PO 1628 Guaifenesin 600 MG Q12 11/14 0018 AC 11/14 PO 0933 Guaifenesin/ 10 ML Q6P PRN 11/14 1545 AC Dextromethorphan PO Ibuprofen 600 MG Q6P PRN 11/14 0030 AC PO Ipratropium Engelhard 2.5 ML ONCE ONE 11/13 1899 DC 11/13 INH 11/13 1900 192 Methylprednisolone 40 MG Q8 11/14 599 DC 11/14 IV 11/17 2200 0635 Methylprednisolone 0 .STK-MED ONE 11/14 1947 DC .ROUTE Methylprednisolone 125 MG ONCE ONE 11/13 1899 DC 11/13 IV 11/13 Oseltamivir Phosphate 75 MG BID 11/14 113 AC PO 11/14 2200 Tramadol HCl 50 MG BID PRN 11/14 0030 AC PO Last 24 Hrs of Lab/Dinh Results Last 24 Hrs of Labs/Mics: Laboratory Tests 11/14/17 0823: Anion Gap 17 H, Estimated GFR > 60, BUN/Creatinine Ratio 31.7 H, Free T4 1.19, Total T3 1.02, TSH &T3 &Free T4 Intrp 0.124 L, CBC w Diff NO MAN DIFF REQ, RBC 3.98 L, MCV 86.4, MCH 29.0, MCHC 33.6, RDW 13.4, MPV 8.4, Gran % 91.4 H, Lymphocytes % 8.2 L, Monocytes % 0.4 L, Eosinophils % 0, Basophils % 0, Absolute Granulocytes 16.0 H, Absolute Lymphocytes 1.4, Absolute Monocytes 0.1, Absolute Eosinophils 0, Absolute Basophils 0 11/13/17 1930: Anion Gap 15, Estimated GFR > 60, BUN/Creatinine Ratio 26.7 H, Glucose 114 H, Calcium 9.8, Total Bilirubin 0.5, AST 16, ALT 28, Alkaline Phosphatase 98, Troponin I < 0.01, Total Protein 7.3, Albumin 4.7, Globulin 2.6, Albumin/ Globulin Ratio 1.8, D-Dimer High Sensitivty 402 H, CBC w Diff MAN DIFF ORDERED, RBC 4.40, MCV 86.9, MCH 29.6, MCHC 34.1, RDW 13.7, MPV 7.6, Gran % 83.4 H, Lymphocytes % 13.5 L, Monocytes % 2.8, Eosinophils % 0, Basophils % 0.3, Absolute Granulocytes 13.4 H, Segmented Neutrophils 87 H, Absolute Lymphocytes 2.2, Lymphocytes 11 L, Monocytes 2, Absolute Monocytes 0.5, Absolute Eosinophils 0, Absolute Basophils 0.1, Platelet Estimate VERIFIED BY SMEAR, Normocytic RBCs VERIFIED, Normochromic RBCs VERIFIED, Fld Total RBCs Counted 100 Microbiology 11/14 20 URINE ROUT: Legionella Antigen - COMP 11/14 20 URINE ROUT: Streptococcus pneumoniae Antigen (M - COMP 11/14 18 LOWER RESP: Respiratory Culture - COLB 11/14 18 LOWER RESP: Gram Stain - COLB 11/13 183 NASOPHARYN: Influenza Virus A & B Rapid Smear - CAN Cancelled: Cancelled via OE: Patient Refused Assessment/Plan Assessment: Patient is a 62-year-old female with a past medical history of restless leg syndrome, endometriosis, borderline diabetes, chronic lower back pain, arthritis that comes to see us for dyspnea, cough, wheezing last Monday. Prescribed Tamifu and a course of azithromycin from urgent care and her PCP. Came to our ED yesterday, had chest x-ray which showed no evidence of acute cardiopulmonary process, was given treatment for bronchitis including steroid taper. Now returns with same symptoms. In the ED, patient found to have initial temperature 97.4 which increased to 100.8, pulse from 85-100, respiratory rate around 20, blood pressure 163/90 on admission that decreased to 131/63, good oxygen saturation on room air. WBC count found to be 16.1 with high granulocytes, d-dimer of 402, all other labs normal including troponin. Chest x-ray done yesterday found no evidence of acute cardiopulmonary process. CTA today showed no PE but foci of reticular nodule opacities with "tree-in-bud" configuration and left lower lobe suggestive of infectious or inflammatory process, atelectasis, and an indeterminate subtle hypodensity in the left thyroid lobe. EKG showed normal sinus rhythm at a rate of 99. Thus patient is septic secondary to pneumonia. Patient's differential includes pneumonia, bronchitis, COPD (the patient has no history of COPD diagnosed), PE, acute coronary syndrome, CHF. She does have a history of smoking. She is febrile, tachycardic, with elevated wbc but chest x- ray from yesterday shows no evidence of pneumonia, however evidence of pneumonia on CTA so pneumonia is working diagnosis. CTA shows no evidence of PE. Troponin and EKG negative for acute coronary syndrome. Evidence of CHF not seen on chest x-ray although patient has never had echocardiogram. Additionally hypodensity was found in the patient's left thyroid lobe which will need to be worked up. Of note patient has had no symptoms of hypo/hyperthyroidism. Plan Upper respiratory symptomsm sepsis secondary to pneumonia - resistant to treatment for solely bronchitis. -admit to floor - reported improved symptoms - Urine strep and Legionella antigens -Flu swab not done, refused by patient and she states that she was already diagnosed with the flu - complete tamiflu 2 doses -Ceftriaxone 1 g daily -Azithromycin 500 mg daily -Solu-Medrol 40 every 8 for wheezing, disontinued considering imprved wheezing -Mucinex 600 mg twice a day -TRC/nebs -Lower respiratory culture Thyroid nodule seen on CTA -Follow PCP Chronic medical problems -Clonopin and gabapentin for patient's restless leg syndrome -Tramadol and meloxicam for chronic back pain and arthritis Lovenox and Alps for DVT prophylaxis Regular diet Full code Problem List: 1. Bronchitis Pain Ratin Pain Location: None Pain Goal: Pain 4 or less Pain Plan: Continue current plan Tomorrow's Labs & Rationales: CBC BEP
[2017-11-14 14:28] VITALS: BP 144/73
[2017-11-14 22:05] VITALS: BP 140/72
[2017-11-15 07:42] VITALS: BP 110/80
--- NOTE | 2017-11-15 07:56 | PN- Housestaff ---
Jerman Mcconnell MD,[facility] 11/15/17 0756: Subjective Follow-up For: URTI Bronchitis/pneumonia Subjective: Patient visited today, was lying in bed in minimal distress, was alert and oriented. Was coughing during interview. He was also wheezing, reported worsening of cough and sputum despite initial improvement. No fever or chills, reported pleuretic chest pain, no other events. CXR was repeated which did not reveal considerable pathology with no change compared to yesterday. Pulm consult was placed with Dr Olivares. Review of Systems Constitutional: Reports: see HPI. Objective Last 24 Hrs of Vital Signs/I&O Vital Signs Date Time Temp Pulse Resp B/P B/P Pulse O2 O2 Flow FiO2 Mean Ox Delivery Rate 11/15 1358 98.6 87 21 129/67 96 Nasal Cannula 11/15 0800 Nasal 2.0L Cannula 11/15 0750 96 Nasal 2.0L Cannula 11/15 0742 98.5 102 22 110/80 95 Room Air 11/15 0000 94 Nasal 2.0L Cannula 11/14 2205 98.0 104 24 140/72 94 Nasal 2.0L Cannula 11/14 1946 95 Nasal 2.0L Cannula 11/14 1600 Room Air Intake & Output 11/15 1600 11/15 0800 11/15 0000 Intake Total 900 360 360 Output Total Balance 900 360 360 Intake, Oral 900 360 360 Patient 158 lb Weight Weight Bed scale Measurement Method Physical Exam General Appearance: Alert, Oriented X3, Cooperative, No Acute Distress Skin Temp/Moisture Exam: Warm/Dry Sepsis Skin Exam (color): Normal for Ethnicity HEENT: Atraumatic, EOMI, Mucous Membr. moist/pink Cardiovascular: Normal S1, Normal S2 Lungs: bilateral wheezing Abdomen: Soft, No Tenderness Current Medications: Current Medications Sig/Leon Start time Last Medication Dose Route Stop Time Status Admin Albuterol Sulfate 3 ML TID 11/14 1000 AC 11/15 INH 1343 Azithromycin 500 MG DAILY 11/14 1000 AC 11/15 Dextrose/Water 250 ML IV 0945 Ceftriaxone Sodium 1,000 MG DAILY 11/14 1000 AC 11/15 IV 0931 Clonazepam 0.5 MG QPM 11/14 2200 AC 11/14 PO 11/21 Enoxaparin Sodium 40 MG DAILY 11/14 1000 AC 11/15 SC 0943 Gabapentin 300 MG TID 11/14 1000 AC 11/15 PO 0937 Guaifenesin 600 MG Q12 11/14 0018 AC 11/15 PO 0937 Guaifenesin/ 10 ML Q6P PRN 11/14 1545 AC 11/15 Dextromethorphan PO 0812 Ibuprofen 600 MG Q6P PRN 11/14 0030 AC 11/15 PO 0938 Oseltamivir Phosphate 75 MG Q12H 11/14 2100 DC 11/15 PO 11/15 0901 0938 Oseltamivir Phosphate 75 MG BID 11/14 1130 DC PO 11/14 2201 Patient Medication 1 ED ONE ONE 11/15 1145 DC Teaching ED 11/15 1146 Tramadol HCl 50 MG BID PRN 11/14 0030 AC PO Last 24 Hrs of Lab/Dinh Results Last 24 Hrs of Labs/Mics: Laboratory Tests 11/15/17 0748: Anion Gap 11, Estimated GFR > 60, BUN/Creatinine Ratio 38.3 H, CBC w Diff NO MAN DIFF REQ, RBC 4.08 L, MCV 87.6, MCH 29.3, MCHC 33.5, RDW 14.0, MPV 8.1, Gran % 71.0, Lymphocytes % 24.5, Monocytes % 3.7, Eosinophils % 0.3, Basophils % 0.5, Absolute Granulocytes 14.2 H, Absolute Lymphocytes 4.9 H, Absolute Monocytes 0.7 H, Absolute Eosinophils 0.1, Absolute Basophils 0.1 Assessment/Plan Assessment: Patient is a 62-year-old female with a past medical history of restless leg syndrome, endometriosis, borderline diabetes, chronic lower back pain, arthritis that comes to see us for dyspnea, cough, wheezing last Monday. Prescribed Tamifu and a course of azithromycin from urgent care and her PCP. Came to our ED yesterday, had chest x-ray which showed no evidence of acute cardiopulmonary process, was given treatment for bronchitis including steroid taper. Now returns with same symptoms. In the ED, patient found to have initial temperature 97.4 which increased to 100.8, pulse from 85-100, respiratory rate around 20, blood pressure 163/90 on admission that decreased to 131/63, good oxygen saturation on room air. WBC count found to be 16.1 with high granulocytes, d-dimer of 402, all other labs normal including troponin. Chest x-ray done yesterday found no evidence of acute cardiopulmonary process. CTA today showed no PE but foci of reticular nodule opacities with "tree-in-bud" configuration and left lower lobe suggestive of infectious or inflammatory process, atelectasis, and an indeterminate subtle hypodensity in the left thyroid lobe. EKG showed normal sinus rhythm at a rate of 99. Thus patient is septic secondary to pneumonia. Patient's differential includes pneumonia, bronchitis, COPD (the patient has no history of COPD diagnosed), PE, acute coronary syndrome, CHF. She does have a history of smoking. She is febrile, tachycardic, with elevated wbc but chest x- ray from yesterday shows no evidence of pneumonia, however evidence of pneumonia on CTA so pneumonia is working diagnosis. CTA shows no evidence of PE. Troponin and EKG negative for acute coronary syndrome. Evidence of CHF not seen on chest x-ray although patient has never had echocardiogram. Additionally hypodensity was found in the patient's left thyroid lobe which will need to be worked up. Of note patient has had no symptoms of hypo/hyperthyroidism. Plan Upper respiratory symptomsm sepsis secondary to pneumonia - resistant to treatment for solely bronchitis. -admit to [facility] floor - reported improved symptoms but still has cough and sputum - Urine strep and Legionella antigens - Flu swab not done, refused by patient and she states that she was already diagnosed with the flu - completed tamiflu 2 doses -Ceftriaxone 1 g daily -Azithromycin 500 mg daily -Solu-Medrol 40 every 8 for wheezing, disontinued considering imprved wheezing -Mucinex 600 mg twice a day -TRC/nebs -Lower respiratory culture - pulm consult - CXR repeat in AM Thyroid nodule seen on CTA -Follow PCP Chronic medical problems -Clonopin and gabapentin for patient's restless leg syndrome -Tramadol and meloxicam for chronic back pain and arthritis Lovenox and Alps for DVT prophylaxis Regular diet Full code Problem List: 1. Pneumonia 2. Bronchitis Pain Ratin Pain Location: pleuretic chest pain Pain Goal: Pain 4 or less Pain Plan: Continue current plan Tomorrow's Labs & Rationales: CBC BEP Evelin Thakkar 11/15/17 1030: Attending Review Statement Attending Statement Attending MD Statement: examined this patient, discuss w/resident/PA/BANK CREDIT CARD COLLECTION CLERK, agreed w/resident/PA/BANK CREDIT CARD COLLECTION CLERK, discussed with family, reviewed EMR data (avail), discussed with nursing, discussed with case mgmt, reviewed images, amended to note Attending Assessment/Plan: Patient seen/examined bedside. She has h/o smoking in past never had PFTs. Patient is on 2l oxygen supplementation. Patient today c/o left sided pleuritic chest pain worsening with deep breath. Patient repeat chest xray today read as atelectasis. She is advised to give sputum sample. Patient is on iv ceftriaxne and azithromycin for possible community acquired pneumonia of left lower lobe with leukocytosis. Continue with bronchodilators, Pulmonary consult and follow clinically. o/p PFTs referral. gi/dvt prophyklaxis full code.
[2017-11-15 09:01] LABS: ABSOLUTE BASOPHIL COUNT 0.1 /CUMM (0.0-0.2); ABSOLUTE EOSINOPHIL COUNT 0.1 /CUMM (0.0-0.7); ABSOLUTE GRANULOCYTE CT 14.2 /CUMM (1.4-6.5); ABSOLUTE LYMPH COUNT 4.9 /CUMM (1.2-3.4); ABSOLUTE MONOCYTE COUNT 0.7 /CUMM (0.10-0.60); BASOPHIL % 0.5 % (0.0-2.0); EOSINOPHIL % 0.3 % (0-5); HEMATOCRIT 35.7 % (37-47); MEAN CORPUSCULAR HGB 29.3 PG (27.0-31.0); MEAN CORPUSCULAR HGB CONC 33.5 G/DL (33.0-37.0); MEAN CORPUSCULAR VOLUME 87.6 FL (81.0-99.0); MEAN PLATELET VOLUME 8.1 FL (7.4-10.4); RED BLOOD CELL CT 4.08 /CUMM (4.20-5.40); WHITE BLOOD CELL COUNT 20.1 /CUMM (4.8-10.8)
--- NOTE | 2017-11-15 09:34 | RADIOLOGY REPORT ---
EXAMINATION: XR CHEST CLINICAL INFORMATION: Evaluate for pneumonia. Cough and sputum. CT yesterday tree in bud COMPARISON: CT 11/13/2017 TECHNIQUE: 2 views of the chest were obtained. FINDINGS: There is streaky opacity at the right lung base. There was right middle lobe atelectasis in this area on the prior CT scan. The subtle tree-in-bud opacities appreciable in the left lower lobe are not appreciable by x-ray. Cardiomediastinal silhouette normal. No pleural effusion or pneumothorax. Mild S-shaped thoracolumbar scoliosis and multilevel degenerative changes of the thoracic spine. IMPRESSION: Persistent right base atelectasis. No new dense focal consolidation. The subtle tree-in-bud opacities appreciable on the left lower lobe on the prior CT scan are not appreciable by chest x-ray.
[2017-11-15 10:08] LABS: PLATELET COUNT 349 /CUMM (130-400)
[2017-11-15 13:58] VITALS: BP 129/67
--- NOTE | 2017-11-15 16:36 | Cons- Pulmonary ---
General Information and HPI Consulting Request Date of Consult: 11/15/17 Requested By: med team History of Present Illness: Patient is a 62-year-old female with a past medical history of restless leg syndrome, endometriosis, borderline diabetes, chronic lower back pain, arthritis that comes to see us for dyspnea, cough, wheezing last Monday. The patient states that on she called her primary care doctor who prescribed her Tamiflu. The next day, when her cough was worse, she went to urgent care who did a chest x-ray and gave her breathing treatments and a course of azithromycin. When this did nothing to help her respiratory symptoms she came to see us yesterday, had chest x-ray which showed no evidence of acute cardiopulmonary process, was given DuoNeb treatments, Solu-Medrol, Tessalon Perles, Mucinex, IV azithromycin, discharged on a prednisone taper. However, today, the patient states that she feels worse. She states that her wheezing has gotten worse, shortness of breath , she has a cough, now productive of yellow phlegm. She denies any fever, chills, diaphoresis, chest pain, palpitations, orthopnea, shortness of breath on exertion. She states that last night she vomited twice. The patient denies any sick contacts or travel history. No industrial or occupational exposures to respiratory irritants. The patient also denies any constipation/diarrhea, hot or cold intolerance, skin changes, weight changes, hoarseness, weakness, muscle pains other than her chronic back pain, thinning hair, depression, known enlargement of thyroid gland, tremor, palpitations. 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 The patient states that she smoked for 20 years, 4-5 cigarettes a day but quit 8 years ago. She states that she has no issues with alcohol, does no drugs. Constitutional: Reports: no symptoms. EENTM: Reports: no symptoms. Cardiovascular: Reports: no symptoms. Respiratory: Reports: cough, short of breath, sputum production, wheezing. GI: Reports: no symptoms. Genitourinary: Reports: no symptoms. Musculoskeletal: Reports: back pain. Skin: Reports: no symptoms. Neurological/Psychological: Reports: no symptoms. Hematologic/Endocrine: Reports: no symptoms. Immunologic/Allergic: Reports: no symptoms. All Other Systems: Reviewed and Negative Allergies/Medications Allergies: Coded Allergies: codeine (GI UPSET 11/12/17) morphine (VOMITS VIOLENTLY 11/12/17) Home Med List: Albuterol Sulfate (Proair Hfa) 90 MCG HFA.AER.AD 2 PUF INH Q4H PRN RESP. ( Reported) Benzonatate (Tessalon Perle) 100 MG CAPSULE 1 CAP PO TID PRN cough Clonazepam (Unknown Strength) TABLET 1-2 TAB PO QPM RLS (Reported) Gabapentin 300 MG CAPSULE 1 CAP PO TID NERVE PAIN (Reported) Meloxicam (Mobic) 15 MG TABLET 1 TAB PO DAILY PRN PAIN Prednisone 10 MG TABLET 1 TAB PO DAILY PRN bronchitis 3 tabs po x 3 days, 2 tabs po x 3 days, 1 tab po x 3 days Tramadol HCl 50 MG TABLET 1 TAB PO BIDP PRN PAIN (Reported) Review of Systems Review of Systems Constitutional: Reports: see HPI. 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: endometriosis Surgical History Surgical History: non-contributory Psychosocial History Services at Home: None Smoking Status: Former Smoker ETOH Use: occasional use Exam & Diagnostic Data Last 24 Hrs of Vital Signs/I&O Vital Signs Date Time Temp Pulse Resp B/P B/P Pulse O2 O2 Flow FiO2 Mean Ox Delivery Rate 11/15 1358 98.6 87 21 129/67 96 Nasal Cannula 11/15 08 Nasal 2.0L Cannula 11/15 0750 96 Nasal 2.0L Cannula 11/15 0742 98.5 102 22 110/80 95 Room Air 11/15 0000 94 Nasal 2.0L Cannula 11/14 2205 98.0 104 24 140/72 94 Nasal 2.0L Cannula 11/14 1946 95 Nasal 2.0L Cannula Intake & Output 11/15 1600 11/15 0800 11/15 0000 Intake Total 900 360 360 Output Total Balance 900 360 360 Intake, Oral 900 360 360 Patient 158 lb Weight Weight Bed scale Measurement Method Last 48 Hrs of Labs/Dinh: Laboratory Tests 11/15/17 0748: Anion Gap 11, Estimated GFR > 60, BUN/Creatinine Ratio 38.3 H, CBC w Diff NO MAN DIFF REQ, RBC 4.08 L, MCV 87.6, MCH 29.3, MCHC 33.5, RDW 14.0, MPV 8.1, Gran % 71.0, Lymphocytes % 24.5, Monocytes % 3.7, Eosinophils % 0.3, Basophils % 0.5, Absolute Granulocytes 14.2 H, Absolute Lymphocytes 4.9 H, Absolute Monocytes 0.7 H, Absolute Eosinophils 0.1, Absolute Basophils 0.1 11/14/17 0823: Anion Gap 17 H, Estimated GFR > 60, BUN/Creatinine Ratio 31.7 H, Free T4 1.19, Total T3 1.02, TSH &T3 &Free T4 Intrp 0.124 L, CBC w Diff NO MAN DIFF REQ, RBC 3.98 L, MCV 86.4, MCH 29.0, MCHC 33.6, RDW 13.4, MPV 8.4, Gran % 91.4 H, Lymphocytes % 8.2 L, Monocytes % 0.4 L, Eosinophils % 0, Basophils % 0, Absolute Granulocytes 16.0 H, Absolute Lymphocytes 1.4, Absolute Monocytes 0.1, Absolute Eosinophils 0, Absolute Basophils 0 11/13/17 1930: Anion Gap 15, Estimated GFR > 60, BUN/Creatinine Ratio 26.7 H, Glucose 114 H, Calcium 9.8, Total Bilirubin 0.5, AST 16, ALT 28, Alkaline Phosphatase 98, Troponin I < 0.01, Total Protein 7.3, Albumin 4.7, Globulin 2.6, Albumin/ Globulin Ratio 1.8, D-Dimer High Sensitivty 402 H, CBC w Diff MAN DIFF ORDERED, RBC 4.40, MCV 86.9, MCH 29.6, MCHC 34.1, RDW 13.7, MPV 7.6, Gran % 83.4 H, Lymphocytes % 13.5 L, Monocytes % 2.8, Eosinophils % 0, Basophils % 0.3, Absolute Granulocytes 13.4 H, Segmented Neutrophils 87 H, Absolute Lymphocytes 2.2, Lymphocytes 11 L, Monocytes 2, Absolute Monocytes 0.5, Absolute Eosinophils 0, Absolute Basophils 0.1, Platelet Estimate VERIFIED BY SMEAR, Normocytic RBCs VERIFIED, Normochromic RBCs VERIFIED, Fld Total RBCs Counted 100 Microbiology 11/14 0021 URINE ROUT: Legionella Antigen - COMP 11/14 0021 URINE ROUT: Streptococcus pneumoniae Antigen (M - COMP Assessment/Plan Impression/Plan: General Appearance Alert, Oriented X3, Cooperative, Mild Distress Skin No Rashes, No Breakdown, No Significant Lesion Skin Temp/Moisture Exam: Warm/Dry Sepsis Skin Exam (color): Normal for Ethnicity HEENT Atraumatic, PERRLA, EOMI, Mucous Membr. moist/pink Neck Supple, No JVD, No thryomegaly Lymphatic no lymphadenopathy Cardiovascular Regular Rate, Normal S1, Normal S2, No Murmurs, Gallops, Rubs Lungs decreased breath sounds, rhonchi, wheezing throughout Abdomen Normal Bowel Sounds, Soft, No Tenderness, No Hepatospenomegaly, No Masses Neurological Normal Speech Extremities No Clubbing, No Cyanosis, No Edema, Normal Pulses, No Tenderness/ Swelling Vascular Normal Pulses, Pulses Symmetrical SIGNIFICANT DATA CT scan as noted above BUN/creatinine stable anion gap is normal Her cholesterol was elevated in the past Her free T4 was unremarkable White count is 20.1 hemoglobin 12.7 with a left shift Her cultures so far has been negative CT chest IMPRESSION: 1. No evidence of central or segmental pulmonary emboli. 2. Foci of reticular nodular opacities with tree-in-bud configuration in the left lower lobe. Differential consideration include infectious or inflammatory processes. Follow-up imaging post-treatment can be obtained to ensure resolution. 3. Foci of atelectasis in bilateral lungs as detailed above. 4. Indeterminate subtle hypodensity in the left thyroid lobe. This can be further characterized with a nonemergent thyroid ultrasound, as clinically warranted. VTE: Negative. DICTATED BY: Julian Nascimento MD DATE/TIME DICTATED:11/13/172147 IMPRESSION This is a 62-year-old lady previous history of smoking quit more than 5 years ago, restless leg syndrome in the past now on Klonopin, endometriosis, borderline diabetes, chronic low back pain on pain management treatment now on tramadol, more than [id number] smoking history, now comes in with * Significant bronchiolitis with cough and wheezing most likely viral etiology but atypical bacteria cannot be ruled out. * Recent history suggestive of influenza which seems to be improved patient has taken Tamiflu * Morbid obesity with periodic leg movement disorder with probable sleep apnea * Obstructive lung disease with mild COPD clinically with no emphysema seen in the CAT scan * Chronic back pain, GERD, rib pain in the right side RECOMMENDATION * Start prednisone 50 mg daily and wean off in 2 weeks * Budesonide nebulizer treatment 0.5 mg twice a day [id number] * DuoNeb every 6 hours [id number] * Continue present antibiotics * Swab nose for MRSA * Avoid nonsteroidals * Pantoprazole daily by mouth * Keep the head of bed elevated * Recheck troponin, BNP, EKG * Sputum culture if any * Start Spiriva 1 puff daily Will follow closely Consult Acknowledgment - Thank you for your consult request.
[2017-11-15 22:09] VITALS: BP 122/73
[2017-11-16 06:44] VITALS: BP 120/80
--- NOTE | 2017-11-16 07:55 | PN- Housestaff ---
Jerman Mcconnell MD,[facility] 11/16/17 0755: Subjective Follow-up For: Respiratory distress Subjective: Patient visited today, was lying in bed comfortably in no acute distress, was alert and oriented. Reported imporve cough and SOB. little sputum which was not enough for exam No fever or chills, still reported pleuretic chest pain with cough, no other events. Started on oral pred 50mg per pulm. antibiotics changed to PO ceftin and azithromycin Review of Systems Constitutional: Reports: see HPI. Objective Last 24 Hrs of Vital Signs/I&O Vital Signs Date Time Temp Pulse Resp B/P B/P Pulse O2 O2 Flow FiO2 Mean Ox Delivery Rate 11/16 0832 96 Room Air Room Air 11/16 0644 97.3 72 20 120/80 97 Nasal 2.0L Cannula 11/16 0000 97 Nasal 2.0L Cannula 11/15 2209 98.2 82 22 122/73 97 Nasal Cannula 11/15 1841 98 Nasal 2.0L Cannula 11/15 1358 98.6 87 21 129/67 96 Nasal Cannula Intake & Output 11/16 1600 11/16 0800 11/16 0000 Intake Total 360 480 Output Total Balance 360 480 Intake, Oral 360 480 Number 1 Bowel Movements Patient 197 lb Weight Weight Bed scale Measurement Method Physical Exam General Appearance: Alert, Oriented X3, Cooperative, No Acute Distress Skin Temp/Moisture Exam: Warm/Dry Sepsis Skin Exam (color): Normal for Ethnicity HEENT: Atraumatic, EOMI, Mucous Membr. moist/pink Cardiovascular: Normal S1, Normal S2 Lungs: bilateral wheezing, crackles Abdomen: Soft, No Tenderness Neurological: Normal Speech Extremities: trace bilateral edema Current Medications: Current Medications Sig/Leon Start time Last Medication Dose Route Stop Time Status Admin Albuterol Sulfate 3 ML TID 11/14 1000 AC 11/16 INH 0829 Azithromycin 500 MG DAILY 11/14 1000 AC 11/15 Dextrose/Water 250 ML IV 0945 Budesonide 0.5 MG BID 11/15 2199 AC 11/16 INH 08 Ceftriaxone Sodium 1,000 MG DAILY 11/14 1000 AC 11/15 IV 0931 Clonazepam 0.5 MG QPM 11/14 2199 AC 11/15 PO 11/21 Enoxaparin Sodium 40 MG DAILY 11/14 1000 AC 11/15 SC 0943 Gabapentin 300 MG TID 03/06 1000 AC 11/15 PO 2053 Guaifenesin 600 MG Q12 11/14 0018 AC 11/15 PO 2053 Guaifenesin/ 10 ML Q6P PRN 11/14 1545 AC 11/16 Dextromethorphan PO 05 Ibuprofen 600 MG .STK-MED ONE 11/15 2056 DC PO 11/15 2057 Ibuprofen 600 MG .STK-MED ONE 11/15 0926 DC PO 11/15 926 Ibuprofen 600 MG Q6P PRN 11/14 0030 DC 11/15 PO 2056 Omeprazole 40 MG DAILY AC 11/16 0700 AC 11/16 PO 0539 Oseltamivir Phosphate 75 MG Q12H 11/14 2100 DC 11/15 PO 11/15 0901 0938 Patient Medication 1 ED ONE ONE 11/15 1145 DC 11/15 Teaching ED 11/15 1146 1732 Prednisone 50 MG DAILY 11/15 1906 AC 11/15 PO 2053 Tiotropium [place] 1 PUF DAILY 11/16 1000 AC INH Tramadol HCl 50 MG BID PRN 11/14 0030 AC PO Last 24 Hrs of Lab/Dinh Results Last 24 Hrs of Labs/Mics: Laboratory Tests 11/16/17 0800: CBC w Diff Pending, WBC Pending, RBC Pending, Hgb Pending, Hct Pending, MCV Pending, MCH Pending, MCHC Pending, RDW Pending, Plt Count Pending, MPV Pending 11/15/17 1930: Troponin I < 0.01, [id number] Pept 167 H Microbiology 11/15 2144 LOWER RESP: Respiratory Culture - CAN Cancelled: NUMBER OF SQUAMOUS CELLS INDICATES POOR QUALITY SPECIMEN 11/15 2144 LOWER RESP: Gram Stain - CAN Cancelled: NUMBER OF SQUAMOUS CELLS INDICATES POOR QUALITY SPECIMEN 11/15 1949 UPPER RESP: Surveillance Culture - RECD Assessment/Plan Assessment: Patient is a 62-year-old female with a past medical history of restless leg syndrome, endometriosis, borderline diabetes, chronic lower back pain, arthritis that comes to see us for dyspnea, cough, wheezing last Monday. Prescribed Tamifu and a course of azithromycin from urgent care and her PCP. Came to our ED yesterday, had chest x-ray which showed no evidence of acute cardiopulmonary process, was given treatment for bronchitis including steroid taper. Now returns with same symptoms. In the ED, patient found to have initial temperature 97.4 which increased to 100.8, pulse from 85-100, respiratory rate around 20, blood pressure 163/90 on admission that decreased to 131/63, good oxygen saturation on room air. WBC count found to be 16.1 with high granulocytes, d-dimer of 402, all other labs normal including troponin. Chest x-ray done yesterday found no evidence of acute cardiopulmonary process. CTA today showed no PE but foci of reticular nodule opacities with "tree-in-bud" configuration and left lower lobe suggestive of infectious or inflammatory process, atelectasis, and an indeterminate subtle hypodensity in the left thyroid lobe. EKG showed normal sinus rhythm at a rate of 99. Thus patient is septic secondary to pneumonia. Patient's differential includes pneumonia, bronchitis, COPD (the patient has no history of COPD diagnosed), PE, acute coronary syndrome, CHF. She does have a history of smoking. She is febrile, tachycardic, with elevated wbc but chest x- ray from yesterday shows no evidence of pneumonia, however evidence of pneumonia on CTA so pneumonia is working diagnosis. CTA shows no evidence of PE. Troponin and EKG negative for acute coronary syndrome. Evidence of CHF not seen on chest x-ray although patient has never had echocardiogram. Additionally hypodensity was found in the patient's left thyroid lobe which will need to be worked up. Of note patient has had no symptoms of hypo/hyperthyroidism. Plan Cough and sputum, respiratory distress Upper respiratory symptomsm, mostlikely due to small airway disease, bronchiolitis vs bronchits atypical pneumonia Cutlures were sent which remianed negative. Flu swab was not done, refused by patient and she states that she was already diagnosed with the flu. The tamiflu was completed. Antibiotic treatment with Ceftriaxone and azithromycin was initiated. - admit to [facility] floor - reported improved symptoms but still has cough and sputum - completed tamiflu 2 doses - Ceftriaxone 1 g daily changed to Ceftin PO - Azithromycin 500 mg daily - continue prednison 50mg for 2w per PULM, will then taper -Mucinex 600 mg twice a day -TRC/nebs -Lower respiratory culture - Follow pulm consult - CXR repeat in AM Thyroid nodule seen on CTA -Follow PCP Chronic medical problems -Clonopin and gabapentin for patient's restless leg syndrome -Tramadol and meloxicam for chronic back pain and arthritis Lovenox and Alps for DVT prophylaxis Regular diet Full code Problem List: 1. Bronchiolitis 2. Bronchitis 3. Pneumonia Pain Ratin Pain Location: pleuretic with chest pain Pain Goal: Pain 4 or less Pain Plan: continue current plan Tomorrow's Labs & Rationales: CBC BEP Evelin Thakkar 11/16/17 1103: Attending MD Review Statement Attending Statement Attending MD Statement: examined this patient, discuss w/resident/PA/BRANCH RETAIL EXECUTIVE, agreed w/resident/PA/BRANCH RETAIL EXECUTIVE, discussed with family, reviewed EMR data (avail), discussed with nursing, discussed with case mgmt, reviewed images, amended to note Attending Assessment/Plan: Patient seen/examined bedside. She has h/o smoking in past never had PFTs. Patient is on room air with minimal use of accessory muscles. Patient still c/o left sided pleuritic chest pain worsening with deep breath but she is significnatly improved from yesterday. f/u chest xray for pleuritic chest pain. Patient is on iv ceftriaxne and azithromycin for possible community acquired pneumonia of left lower lobe with leukocytosis. Continue with bronchodilators, steroids, Appreciate Pulmonary consult and follow clinically. Taper steroids as per pulmoanry. o/p PFTs referral. gi/dvt prophylaxis full code.
[2017-11-16 09:04] LABS: ABSOLUTE BASOPHIL COUNT 0 /CUMM (0.0-0.2); ABSOLUTE EOSINOPHIL COUNT 0 /CUMM (0.0-0.7); ABSOLUTE GRANULOCYTE CT 12.8 /CUMM (1.4-6.5); ABSOLUTE LYMPH COUNT 2.3 /CUMM (1.2-3.4); ABSOLUTE MONOCYTE COUNT 0.6 /CUMM (0.10-0.60); BASOPHIL % 0.2 % (0.0-2.0); EOSINOPHIL % 0.1 % (0-5); GRANULOCYTE % 81.6 % (42.2-75.2); MEAN CORPUSCULAR HGB 29.6 PG (27.0-31.0); MEAN PLATELET VOLUME 7.6 FL (7.4-10.4); PLATELET COUNT 382 /CUMM (130-400); RBC DISTRIBUTION WIDTH 13.7 % (11.5-14.5); RED BLOOD CELL CT 4.25 /CUMM (4.20-5.40); WHITE BLOOD CELL COUNT 15.7 /CUMM (4.8-10.8)
--- NOTE | 2017-11-16 10:43 | PN- Pulmonary ---
Subjective HPI/Critical Care Issues: Patient visited today, was lying in bed comfortably in no acute distress, was alert and oriented. Reported imporve cough and SOB. little sputum which was not enough for exam No fever or chills, still reported pleuretic chest pain with cough, no other events. Objective Current Medications: Current Medications Sig/Leon Start time Last Medication Dose Route Stop Time Status Admin Albuterol Sulfate 3 ML TID 11/14 1000 AC 11/16 INH 0829 Azithromycin 500 MG DAILY 11/14 1000 AC 11/16 Dextrose/Water 250 ML IV 1007 Budesonide 0.5 MG BID 11/15 2200 AC 11/16 INH 0829 Ceftriaxone Sodium 1,000 MG DAILY 11/14 1000 AC 11/16 IV 1006 Clonazepam 0.5 MG QPM 11/14 2200 AC 11/15 PO 11/21 215 205 Enoxaparin Sodium 40 MG DAILY 11/14 1000 AC 11/16 SC 1006 Gabapentin 300 MG TID 11/14 1000 AC 11/16 PO 1006 Guaifenesin 600 MG Q12 11/14 0018 AC 11/16 PO 1006 Guaifenesin/ 10 ML Q6P PRN 11/14 1545 AC 11/16 Dextromethorphan PO 0540 Ibuprofen 600 MG .STK-MED ONE 11/15 2056 DC PO 11/15 2057 Ibuprofen 600 MG Q6P PRN 11/14 0030 DC 11/15 PO 205 Omeprazole 40 MG DAILY AC 11/16 0700 AC 11/16 PO 0539 Patient Medication 1 ED ONE ONE 11/15 1145 DC 11/15 Teaching ED 11/15 1146 1732 Prednisone 50 MG DAILY 11/15 1906 AC 11/16 PO 1006 Tiotropium [place] 1 PUF DAILY 11/16 1000 AC 11/16 INH 1007 Tramadol HCl 50 MG BID PRN 11/14 0030 AC PO Vital Signs & I&O Last 24 Hrs of Vitals and I&O: Vital Signs Date Time Temp Pulse Resp B/P B/P Pulse O2 O2 Flow FiO2 Mean Ox Delivery Rate 11/17 1533 98.4 86 20 130/80 93 Impression/Plan Impression/Plan Impression/Plan: General Appearance Alert, Oriented X3, Cooperative, Mild Distress Skin No Rashes, No Breakdown, No Significant Lesion Skin Temp/Moisture Exam: Warm/Dry Sepsis Skin Exam (color): Normal for Ethnicity HEENT Atraumatic, PERRLA, EOMI, Mucous Membr. moist/pink Neck Supple, No JVD, No thryomegaly Lymphatic no lymphadenopathy Cardiovascular Regular Rate, Normal S1, Normal S2, No Murmurs, Gallops, Rubs Lungs decreased breath sounds, rhonchi, wheezing throughout Abdomen Normal Bowel Sounds, Soft, No Tenderness, No Hepatospenomegaly, No Masses Neurological Normal Speech Extremities No Clubbing, No Cyanosis, No Edema, Normal Pulses, No Tenderness/ Swelling Vascular Normal Pulses, Pulses Symmetrical SIGNIFICANT DATA CT scan as noted above BUN/creatinine stable anion gap is normal Her cholesterol was elevated in the past Her free T4 was unremarkable White count is 20.1 hemoglobin 12.7 with a left shift Her cultures so far has been negative CT chest IMPRESSION: 1. No evidence of central or segmental pulmonary emboli. 2. Foci of reticular nodular opacities with tree-in-bud configuration in the left lower lobe. Differential consideration include infectious or inflammatory processes. Follow-up imaging post-treatment can be obtained to ensure resolution. 3. Foci of atelectasis in bilateral lungs as detailed above. 4. Indeterminate subtle hypodensity in the left thyroid lobe. This can be further characterized with a nonemergent thyroid ultrasound, as clinically warranted. VTE: Negative. DICTATED BY: Julian Nascimento MD DATE/TIME DICTATED:11/13/172147 IMPRESSION This is a 62-year-old lady previous history of smoking quit more than 5 years ago, restless leg syndrome in the past now on Klonopin, endometriosis, borderline diabetes, chronic low back pain on pain management treatment now on tramadol, more than [id number] smoking history, now comes in with * Significant bronchiolitis with cough and wheezing most likely viral etiology but atypical bacteria cannot be ruled out. * Recent history suggestive of influenza which seems to be improved patient has taken Tamiflu * Morbid obesity with periodic leg movement disorder with probable sleep apnea * Obstructive lung disease with mild COPD clinically with no emphysema seen in the CAT scan * Chronic back pain, GERD, rib pain in the right side RECOMMENDATION * Prednisone 50 mg daily and wean off in 2 weeks * Budesonide nebulizer treatment 0.5 mg twice a day [id number] and upon dc needs symbicort 160 2 puff bid * DuoNeb every 8 hours [id number] * Continue present antibiotics, can dc iv abx and change to po ceftin bid and azithro for a total of seven days of abx * Avoid nonsteroidals * Pantoprazole daily by mouth * Keep the head of bed elevated * Sputum culture if any * Spiriva 1 puff daily Will follow closely
--- NOTE | 2017-11-16 10:48 | RADIOLOGY REPORT ---
EXAMINATION: XR CHEST CLINICAL INFORMATION: Cough and sputum. Contact with flu. Evaluate for pneumonia. CT yesterday showed tree-in-bud. COMPARISON: Chest x-ray dated 11/15/2017. CTA of the chest dated 11/13/2017. TECHNIQUE: 2 views of the chest were obtained. FINDINGS: The cardiomediastinal silhouette is within normal limits in size. Mild tortuosity of the aorta is seen. Low lung volumes are noted with persistent bibasilar linear opacities, consistent with subsegmental atelectasis. Findings are similar to the previous exam and most prominent in the right middle lobe region. The [id number]-type opacities seen on CTA of the chest in the left lower lobe are not appreciated on plain film. No evolving focal consolidation, effusion or pneumothorax is seen. Mild S-shaped thoracolumbar scoliosis and multilevel mild vertebral spondylosis seen in the spine. IMPRESSION: 1. No interval change in bibasilar reticular opacities, most prominent in the right middle lobe, consistent with atelectasis. 2. The tree-in-bud type opacities in the left lower lobe seen on CT scan are not appreciated on plain film. 3. No evolving pneumonia seen.
--- NOTE | 2017-11-16 14:27 | Discharge Summary ---
Visit Information Visit Dates Admission Date: 11/13/17 Discharge Date: 11/17/17 Hospital Course Course Attending Physician: Evelin Thakkar MD Primary Care Physician: Marianela Rodriguez [facility] Course: Patient is a 62-year-old female with a past medical history of restless leg syndrome, endometriosis, borderline diabetes, chronic lower back pain, arthritis presented for dyspnea, cough, wheezing last Monday. Prescribed Tamifu and a course of azithromycin from urgent care and her PCP. Came to the day prior to admisson, had chest x-ray which showed no evidence of acute cardiopulmonary process, was given treatment for bronchitis including steroid taper. came back for no improvement. In the ED, patient found to have initial temperature 97.4 which increased to 100.8, pulse from 85-100, respiratory rate around 20, blood pressure 163/90 on admission that decreased to 131/63, good oxygen saturation on room air. WBC count found to be 16.1 with high granulocytes, d-dimer of 402, all other labs normal including troponin. Chest x -ray done yesterday found no evidence of acute cardiopulmonary process. CTA today showed no PE but foci of reticular nodule opacities with "tree-in-bud" configuration and left lower lobe suggestive of infectious or inflammatory process, atelectasis, and an indeterminate subtle hypodensity in the left thyroid lobe. EKG showed normal sinus rhythm at a rate of 99. patient admitted to general medicine floor for management of following conditions: Cough and sputum, respiratory distress Cutlures were sent which remianed negative. Flu swab was not done, refused by patient and she states that she was already diagnosed with the flu. The tamiflu was completed. Antibiotic treatment with Ceftriaxone and azithromycin was initiated and then changed to bactrim after culture positive for mrsa. we continued prednison 50mg for 2w per PULM, will then taper Patient instructed to do Chest x-ray and blood work to follow with Dr. Paul next week. Thyroid nodule seen on CTA -Follow PCP Chronic medical problems -Clonopin and gabapentin for patient's restless leg syndrome -Tramadol and meloxicam for chronic back pain and arthritis Lovenox and Alps for DVT prophylaxis Regular diet Full code Allergies: Coded Allergies: codeine (GI UPSET 11/12/17) morphine (VOMITS VIOLENTLY 11/12/17) Disposition Summary Disposition Principal Diagnosis: Bronchiolitis, atypical pneumonia, less likely MRSA pneumonia Additional Diagnosis: Thyroid nodule seen on CTA Discharge Disposition: home health services Discharge Instructions General Discharge Information Code Status: Full Code Patient's Diet: regular Patient's Activity: as tolerated Follow-Up Instructions/Appts: Please follow with your PCP within one week of discharge. Please follow with your [facility] nurse within 2 weeks of discharge with blood work and imaging requested. Please take your medications as ordered. Please come back to hospital if symptoms worsen. Medications at Discharge Discharge Medications: Stop taking the following medications: Meloxicam (Mobic) 15 MG TABLET ORAL DAILY as needed for PAIN Qty = 14 Continue taking these medications: Clonazepam (Clonazepam) (Unknown Strength) TABLET 1-2 Tablet ORAL Every night Comments: Last Taken:11/16/17 Time:930PM Gabapentin (Gabapentin) 300 MG CAPSULE 1 Capsule ORAL THREE TIMES DAILY Qty = 90 Comments: Last Taken:11/17/17 Time:9AM Tramadol HCl (Tramadol HCl) 50 MG TABLET 1 Tablet ORAL 2 x Daily as needed as needed for PAIN Qty = 60 Comments: Last Taken:11/16/17 Time:9PM Albuterol Sulfate (Proair Hfa) 90 MCG HFA.AER.AD 2 Puff Inhale through mouth Q4H as needed for RESP. Qty = 9 Comments: Last Taken:11/17/17 Time:9AM Benzonatate (Tessalon [place]) 100 MG CAPSULE 1 Capsule ORAL THREE TIMES DAILY as needed for cough Qty = 30 Comments: NOT GIVEN Start taking the following new medications: Sulfamethoxazole/Trimethoprim (Bactrim Ds Tablet) 800 MG-160 MG TABLET 1 Tablet ORAL TWICE DAILY Qty = 20 No Refills Instructions: . Tiotropium [place] (Spiriva) 18 MCG CAP.W.DEV 1 Capsule Inhale through mouth DAILY Qty = 30 No Refills Instructions: . Budesonide/Formoterol Fumarate (Symbicort 160-4.5 Mcg Inhaler) 160 MCG-4.5 MCG/ ACTUATION HFA.AER.AD 2 Puff Inhale through mouth TWICE DAILY Qty = 1 No Refills Instructions: . Pantoprazole Sodium (Protonix) 20 MG TABLET.DR 1 Tablet ORAL DAILY Qty = 30 Refills = 1 Instructions: .. Prednisone (Prednisone) 10 MG TABLET 0 ORAL SEE INSTRUCTIONS Qty = 90 No Refills Instructions: take 5 pills daily from 11/17 to 11/29. then 4 pills daily for 3 days 3 pills daily for 3 days 2 pills daily for 3 days 1 pills daily for 3 days then stop. Comments: take 5 pills daily from 11/17 to 11/29 then 4 pills daily for 3 days 3 pills daily for 3 days 2 pills daily for 3 days 1 pills daily for 3 days then stop Copies To: Carlos CAMARGO,Marianela Reyes; Santana SANDHU,Simba Wilburn Attending MD Review Statement Documenting Attending: Evelin Thakkar MD
[2017-11-16 14:52] VITALS: BP 123/80
[2017-11-16 21:32] VITALS: BP 135/75
[2017-11-17 06:49] VITALS: BP 102/76
--- NOTE | 2017-11-17 08:16 | PN- Housestaff ---
Jerman Mcconnell MD,[facility] 11/17/17 0816: Subjective Follow-up For: Bronchiolitis Bronchitis Pneumonia Subjective: Patient visited today, was lying in bed comfortably in no acute distress, was alert and oriented. Reported improved SOB and cough. little sputum. No fever or chills, reported pleuretic chest pain, no other events. Nasal flare culture grew MRSA. 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 Patient was suggested to receive IV vancomycin VS to be discharged on Bactrim to follow in outpatient with Dr. Dillon. Patient decided to be discharged and follow the direct guide the next week. Later during the day patient asked to further discuss about the teething options. Plan to continue helping decision making in the afternoon with attending. At 3 PM: had conversation with patient in presence of senior resident, patient was actually to stay during the weekend and get PICC line to continue vancomycin , but preferred to be discharged on co-trimoxazole to follow with Dr. Dillon. Patient was important to come back to hospital if symptoms worsen or any new symptoms arise. Review of Systems Constitutional: Reports: see HPI. Objective Last 24 Hrs of Vital Signs/I&O Vital Signs Date Time Temp Pulse Resp B/P B/P Pulse O2 O2 Flow FiO2 Mean Ox Delivery Rate 11/17 0800 96 11/17 0747 94 Room Air 11/17 0649 98.8 83 20 102/76 94 Room Air 11/17 0000 94 Room Air 11/16 2132 97.8 94 18 135/75 94 / 1920 96 Room Air 11/16 1600 94 Room Air / 1452 98.2 99 18 123/80 94 Intake & Output 11/17 1600 11/17 0800 11/17 0000 Intake Total 360 Output Total Balance 360 Intake, Oral 360 Patient 201 lb Weight Physical Exam General Appearance: Alert, Oriented X3, Cooperative, No Acute Distress Skin: No Significant Lesion Skin Temp/Moisture Exam: Warm/Dry Sepsis Skin Exam (color): Normal for Ethnicity HEENT: Atraumatic, EOMI, Mucous Membr. moist/pink Cardiovascular: Regular Rate, Normal S1, Normal S2 Lungs: bilateral ronchi and wheezing Abdomen: Soft, No Tenderness Neurological: Normal Speech Extremities: No Edema Current Medications: Current Medications Sig/Leon Start time Last Medication Dose Route Stop Time Status Admin Albuterol Sulfate 3 ML TID 11/14 1000 AC 11/17 INH 0744 Azithromycin 250 MG DAILY 11/17 1000 AC PO Azithromycin 500 MG DAILY 11/14 1000 DC 11/16 Dextrose/Water 250 ML IV 1007 Budesonide 0.5 MG BID 11/15 2200 AC 11/17 INH 0745 Ceftriaxone Sodium 1,000 MG DAILY 11/14 1000 DC 11/16 IV 1006 Cefuroxime Sodium 250 MG Q12 11/16 2200 AC 11/17 PO 0807 Clonazepam 0.5 MG QPM 11/14 2200 AC 11/16 PO 11/21 2159 2117 Enoxaparin Sodium 40 MG DAILY 11/14 1000 AC 11/17 SC 0811 Gabapentin 300 MG TID 11/14 1000 AC 11/17 PO 0810 Guaifenesin 600 MG Q12 11/14 0018 AC 11/17 PO 0810 Guaifenesin/ 10 ML Q6P PRN 11/14 1545 AC 11/17 Dextromethorphan PO 0813 Omeprazole 20 MG DAILY AC 11/18 0700 AC PO Omeprazole 40 MG DAILY AC 11/16 0700 DC 11/16 PO 0539 Pantoprazole Sodium 40 MG DAILY 11/17 1000 DC 11/17 IV 0811 Patient Medication 1 ED ONE ONE 11/16 1600 DC Teaching ED 11/16 1601 Patient Medication 1 ED ONE ONE 11/16 1600 DC Teaching ED 11/16 1601 Prednisone 50 MG DAILY 11/15 1906 AC 11/17 PO 0806 Tiotropium [place] 1 PUF DAILY 11/16 1000 AC 11/17 INH 0810 Tramadol HCl 50 MG BID PRN 11/14 0030 AC 11/16 PO 2118 Trimethoprim/ 1 TAB BID 11/17 1108 AC Sulfamethoxazole PO Last 24 Hrs of Lab/Dinh Results Last 24 Hrs of Labs/Mics: Laboratory Tests 11/17/17 0745: Anion Gap 10, Estimated GFR > 60, BUN/Creatinine Ratio 27.1 H, CBC w Diff MAN DIFF ORDERED, RBC 4.07 L, MCV 87.0, MCH 29.0, MCHC 33.3, RDW 13.7, MPV 7.7, Gran % 64.5, Lymphocytes % 29.2, Monocytes % 4.8, Eosinophils % 1.3, Basophils % 0.2, Absolute Granulocytes 12.4 H, Segmented Neutrophils 53, Band Neutrophils 2 , Absolute Lymphocytes 5.6 H, Lymphocytes 33, Monocytes 5, Absolute Monocytes 0.9 H, Eosinophils 3, Absolute Eosinophils 0.2, Absolute Basophils 0, Metamyelocytes 1, Myelocytes 3 H, Nucleated RBCs 1 H, Platelet Estimate ADEQUATE, Normocytic RBCs VERIFIED, Normochromic RBCs VERIFIED Assessment/Plan Assessment: Patient is a 62-year-old female with a past medical history of restless leg syndrome, endometriosis, borderline diabetes, chronic lower back pain, arthritis that comes to see us for dyspnea, cough, wheezing last Monday. Prescribed Tamifu and a course of azithromycin from urgent care and her PCP. Came to our ED yesterday, had chest x-ray which showed no evidence of acute cardiopulmonary process, was given treatment for bronchitis including steroid taper. Now returns with same symptoms. In the ED, patient found to have initial temperature 97.4 which increased to 100.8, pulse from 85-100, respiratory rate around 20, blood pressure 163/90 on admission that decreased to 131/63, good oxygen saturation on room air. WBC count found to be 16.1 with high granulocytes, d-dimer of 402, all other labs normal including troponin. Chest x-ray done yesterday found no evidence of acute cardiopulmonary process. CTA today showed no PE but foci of reticular nodule opacities with "tree-in-bud" configuration and left lower lobe suggestive of infectious or inflammatory process, atelectasis, and an indeterminate subtle hypodensity in the left thyroid lobe. EKG showed normal sinus rhythm at a rate of 99. Thus patient is septic secondary to pneumonia. Patient's differential includes pneumonia, bronchitis, COPD (the patient has no history of COPD diagnosed), PE, acute coronary syndrome, CHF. She does have a history of smoking. She is febrile, tachycardic, with elevated wbc but chest x- ray from yesterday shows no evidence of pneumonia, however evidence of pneumonia on CTA so pneumonia is working diagnosis. CTA shows no evidence of PE. Troponin and EKG negative for acute coronary syndrome. Evidence of CHF not seen on chest x-ray although patient has never had echocardiogram. Additionally hypodensity was found in the patient's left thyroid lobe which will need to be worked up. Of note patient has had no symptoms of hypo/hyperthyroidism. Plan Cough and sputum, respiratory distress Upper respiratory symptomsm, mostlikely due to small airway disease, bronchiolitis vs bronchits atypical pneumonia Cutlures were sent which remianed negative. Flu swab was not done, refused by patient and she states that she was already diagnosed with the flu. The tamiflu was completed. Antibiotic treatment with Ceftriaxone and azithromycin was initiated. - stable to discharge - reported improved symptoms but still has cough and sputum - completed tamiflu 2 doses - intially Ceftriaxone and azithromycin, with nasal flare is growing MRSA was changed to Bactrim - continue prednison 50mg for 2w per PULM, will then taper -Mucinex 600 mg twice a day -TRC/nebs -Lower respiratory culture - Follow pulm consult - Chest x-ray and blood work to follow with Dr. Paul next week. Thyroid nodule seen on CTA -Follow PCP Chronic medical problems -Clonopin and gabapentin for patient's restless leg syndrome -Tramadol and meloxicam for chronic back pain and arthritis Lovenox and Alps for DVT prophylaxis Regular diet Full code Problem List: 1. Bronchiolitis 2. Pneumonia 3. Bronchitis Pain Ratin Pain Location: right chest Pain Goal: Pain 4 or less Pain Plan: continue current plan Tomorrow's Labs & Rationales: stable to be discharged Evelin Thakkar 11/17/17 1148: Attending MD Review Statement Attending Statement Attending MD Statement: examined this patient, discuss w/resident/PA/SERVICING REP, agreed w/resident/PA/SERVICING REP, discussed with family, reviewed EMR data (avail), discussed with nursing, discussed with case mgmt, reviewed images, amended to note Attending Assessment/Plan: Patient seen/examined bedside. She has h/o smoking in past never had PFTs. Patient is on room air with minimal use of accessory muscles. Patient with clinical improvement. Abx change to PO for possible community acquired pneumonia s/p influenza related and Surveillance nasal MRSA of left lower lobe with leukocytosis as per pulmonary. Continue with bronchodilators, Taper steroids as per pulmoanry. F/u o/p Pulmoanry as scheduled appointment. Patient is medically stable for discharge. .
[2017-11-17] MEDS ORDERED: AZITHROMYCIN250 M1 PO ×3 (08:23→10:27)
[2017-11-17] MEDS ORDERED: CEFUROXIME250 M1 PO ×2 (08:23→10:27)
[2017-11-17] MEDS ORDERED: PREDNISONE10 M2 PO ×4 (08:34→11:21)
[2017-11-17] MEDS ORDERED: PROTONIX20 M1 PO ×3 (08:34→11:21)
--- NOTE | 2017-11-17 08:39 | Patient Discharge Instructions ---
Discharge Instructions General Discharge Information You were seen/treated for: Bronchiolitis Bronchitis Pneumonia Watch for these problems: Severe chest pain, shortness of breathing, cough, dizziness, lightheadedness or worsening of any other symptoms Special Instructions: Please follow with your PCP within one week of discharge. Please follow with your it operations specialist within 2 weeks of discharge with blood work and imaging requested. Please take your medications as ordered. Please come back to hospital if symptoms worsen. Diet Continue normal diet: Yes Activity Full Activity/No Limits: No Activity Self Limited: Yes (as tolerated) Acute Coronary Syndrome Inclusion Criteria At DC or during hospital stay patient has or had the following: ACS DIAGNOSIS No Discharge Core Measures Meds if any: Prescribed or Continued at Discharge Meds if any: NOT Prescribed or Continued at Discharge Congestive Heart Failure Inclusion Criteria At DC or during hospital stay patient has or had the following: CHF DIAGNOSIS No Discharge Core Measures Meds if any: Prescribed or Continued at Discharge Meds if any: NOT Prescribed or Continued at Discharge Cerebrovascular accident Inclusion Criteria At DC or during hospital stay patient has or had the following: CVA/TIA Diagnosis No Discharge Core Measures Meds if any: Prescribed or Continued at Discharge Meds if any: NOT Prescribed or Continued at Discharge Venous thromboembolism Inclusion Criteria VTE Diagnosis No VTE Type NONE VTE Confirmed by (Test) NONE Discharge Core Measures - Per Current guidelines, there needs to be overlap - treatment for the first 5 days of Warfarin therapy. - If discharged on Warfarin prior to 5 days of - overlap therapy, the patient will need to be - assessed for post discharge needs including - *Post discharge parental anticoagulation - *Warfarin and/or parental anticoagulation education - *Follow up date to check INR post discharge At least 5 days overlap therapy as Inpatient No Meds if any: Prescribed or Continued at Discharge Note: Overlap Therapy is Warfarin and Anticoagulant Meds if any: NOT Prescribed or Continued at Discharge
[2017-11-17 09:18] LABS: ABSOLUTE BASOPHIL COUNT 0 /CUMM (0.0-0.2); ABSOLUTE EOSINOPHIL COUNT 0.2 /CUMM (0.0-0.7); ABSOLUTE GRANULOCYTE CT 12.4 /CUMM (1.4-6.5); ABSOLUTE LYMPH COUNT 5.6 /CUMM (1.2-3.4); ABSOLUTE MONOCYTE COUNT 0.9 /CUMM (0.10-0.60); BASOPHIL % 0.2 % (0.0-2.0); EOSINOPHIL % 1.3 % (0-5); GRANULOCYTE % 64.5 % (42.2-75.2); HEMATOCRIT 35.4 % (37-47); MEAN CORPUSCULAR HGB CONC 33.3 G/DL (33.0-37.0); MEAN PLATELET VOLUME 7.7 FL (7.4-10.4); PLATELET COUNT 375 /CUMM (130-400); RBC DISTRIBUTION WIDTH 13.7 % (11.5-14.5); RED BLOOD CELL CT 4.07 /CUMM (4.20-5.40); WHITE BLOOD CELL COUNT 19.2 /CUMM (4.8-10.8)
--- NOTE | 2017-11-17 10:31 | PN- Pulmonary ---
Subjective HPI/Critical Care Issues: Still coughing and no sputum Wheezing persists Objective Current Medications: Current Medications Sig/Leon Start time Last Medication Dose Route Stop Time Status Admin Albuterol Sulfate 3 ML TID 11/14 1000 AC 11/17 INH 0744 Azithromycin 250 MG DAILY 11/17 1000 AC PO Azithromycin 500 MG DAILY 11/14 1000 DC 11/16 Dextrose/Water 250 ML IV 1007 Budesonide 0.5 MG BID 11/15 2200 AC 11/17 INH 0745 Ceftriaxone Sodium 1,000 MG DAILY 11/14 1000 DC 11/16 IV 1006 Cefuroxime Sodium 250 MG Q12 11/16 2200 AC 11/17 PO 0807 Clonazepam 0.5 MG QPM 11/14 2200 AC 11/16 PO 11/21 2159 2117 Enoxaparin Sodium 40 MG DAILY 11/14 1000 AC 11/17 SC 0811 Gabapentin 300 MG TID 11/14 1000 AC 11/17 PO 0810 Guaifenesin 600 MG Q12 11/14 0018 AC 11/17 PO 0810 Guaifenesin/ 10 ML Q6P PRN 11/14 1545 AC 11/17 Dextromethorphan PO 0813 Omeprazole 20 MG DAILY AC 11/18 0700 AC PO Omeprazole 40 MG DAILY AC 11/16 0700 DC 11/16 PO 0539 Pantoprazole Sodium 40 MG DAILY 11/17 1000 DC 11/17 IV 0811 Patient Medication 1 ED ONE ONE 11/16 1600 DC Teaching ED 11/16 1601 Patient Medication 1 ED ONE ONE 11/16 1600 DC Teaching ED 11/16 1601 Prednisone 50 MG DAILY 11/15 1906 AC 11/17 PO [address] 1 PUF DAILY 11/16 1000 AC 11/17 INH 0810 Tramadol HCl 50 MG BID PRN 11/14 0030 AC 11/16 PO 2118 Vital Signs & I&O Last 24 Hrs of Vitals and I&O: Vital Signs Date Time Temp Pulse Resp B/P B/P Pulse O2 O2 Flow FiO2 Mean Ox Delivery Rate 11/17 0800 96 11/17 0747 94 Room Air 11/17 0649 98.8 83 20 102/76 94 Room Air 11/17 0000 94 Room Air 11/16 2132 97.8 94 18 135/75 94 11/16 1920 96 Room Air 11/16 1600 94 Room Air 11/16 1452 98.2 99 18 123/80 94 Intake & Output 11/17 1600 11/17 0800 11/17 0000 Intake Total 360 Output Total Balance 360 Intake, Oral 360 Patient 201 lb Weight Impression/Plan Impression/Plan Impression/Plan: General Appearance Alert, Oriented X3, Cooperative, Mild Distress Skin No Rashes, No Breakdown, No Significant Lesion Skin Temp/Moisture Exam: Warm/Dry Sepsis Skin Exam (color): Normal for Ethnicity HEENT Atraumatic, PERRLA, EOMI, Mucous Membr. moist/pink Neck Supple, No JVD, No thryomegaly Lymphatic no lymphadenopathy Cardiovascular Regular Rate, Normal S1, Normal S2, No Murmurs, Gallops, Rubs Lungs decreased breath sounds, rhonchi, wheezing throughout Abdomen Normal Bowel Sounds, Soft, No Tenderness, No Hepatospenomegaly, No Masses Neurological Normal Speech Extremities No Clubbing, No Cyanosis, No Edema, Normal Pulses, No Tenderness/ Swelling Vascular Normal Pulses, Pulses Symmetrical SIGNIFICANT DATA CT scan as noted above BUN/creatinine stable anion gap is normal MRSA positive CT chest IMPRESSION: 1. No evidence of central or segmental pulmonary emboli. 2. Foci of reticular nodular opacities with tree-in-bud configuration in the left lower lobe. Differential consideration include infectious or inflammatory processes. Follow-up imaging post-treatment can be obtained to ensure resolution. 3. Foci of atelectasis in bilateral lungs as detailed above. 4. Indeterminate subtle hypodensity in the left thyroid lobe. This can be further characterized with a nonemergent thyroid ultrasound, as clinically warranted. VTE: Negative. [facility] DATE/TIME DICTATED:11/13/172147 IMPRESSION This is a 62-year-old lady previous history of smoking quit more than 5 years ago, restless leg syndrome in the past now on Klonopin, endometriosis, borderline diabetes, chronic low back pain on pain management treatment now on tramadol, more than [id number] smoking history, now comes in with * Significant bronchiolitis with cough and wheezing most likely viral etiology but atypical bacteria cannot be ruled out. / now pt has mrsa colonization and mrsa pna seems less likely but cannot be ruled out * Recent history suggestive of influenza which seems to be improved patient has taken Tamiflu * Morbid obesity with periodic leg movement disorder with probable sleep apnea * Obstructive lung disease with mild COPD clinically with no emphysema seen in the CAT scan * Chronic back pain, GERD, rib pain in the right side RECOMMENDATION * Discussed with patient about rx options, and [facility] in house suggested, however pt wishes to go home. As the index of suspision for mrsa pna is low will rx her per her wishes with po bactrim ds for 7-10 days, and pt will follow with me on monday in my office (after cxr an blood work on monday) * DC on symbicor, spiriva and proair * Dc other abx * Avoid nonsteroidals * Pantoprazole daily by mouth Pt aware of her risks and benefits
[2017-11-17] MEDS ORDERED: BACTRIM DS TAB1 EACH PO ×2 (11:15→11:21)
[2017-11-17] MEDS ORDERED: SYMBICORT 16010.2 GM INH ×2 (11:15→11:21)
[2017-11-17] MEDS ORDERED: SPIRIVA18 MCG INH ×2 (11:15→11:21)
[2017-11-17 15:33] VITALS: BP 130/80
== END 2017-11-17 16:15 | DRG 871 ==
LOC: DELPENDDIS → ERH 12:53 → 2NA 22:34 → ERHI 22:34 → ENRESERV 11-14 10:59 → ENTRNSPT 11-14 12:34 → EDTRNSPT 11-14 12:35 → EDTRNSPTSTS 11-14 12:35 → 2NA 11-14 12:43 → CMPTRNSPT 11-14 12:52 → 2NA 11-15 08:21 → ENPENDDIS 11-17 10:19 → 2NA 11-17 16:15
PROVIDERS: Physician Assistant Medical; Radiology Vascular & Interventional Radiology; Student in an Organized Health Care Education/Training Program
DX: A41.9 Sepsis, unspecified organism (principal); J11.00 Influenza due to unidentified influenza virus with unspecified type of pneumonia; J21.9 Acute bronchiolitis, unspecified; E66.01 Morbid (severe) obesity due to excess calories; G25.81 Restless legs syndrome; N80.9 Endometriosis, unspecified; R73.03 Prediabetes; M54.9 Dorsalgia, unspecified; Z87.891 Personal history of nicotine dependence; Z88.5 Allergy status to narcotic agent; Z79.51 Long term (current) use of inhaled steroids; E04.1 Nontoxic single thyroid nodule; J40 Bronchitis, not specified as acute or chronic; D72.829 Elevated white blood cell count, unspecified; G47.33 Obstructive sleep apnea (adult) (pediatric); F51.9 Sleep disorder not due to a substance or known physiological condition, unspecified; B95.62 Methicillin resistant Staphylococcus aureus infection as the cause of diseases classified elsewhere
CPT/HCPCS: 2NASP; ERO; 36415; 36592; 71046; 82436; 87070; 87449; 87450; 87804; 87804-59; 93005; 93010; 96374; 99291; J0456; J0696; J1650; J2920; J2930; J7060; J7512; J7626

== ENCOUNTER 2017-11-29 05:28 | Emergency (ER) | payer OTHER ==
[~2017-11-29] VITALS: Ht 154.9 cm; Wt 88.0 kg
[~2017-11-29 05:28] MED LIST changes: +AZITHROMYCIN250 M1 PO; +BACTRIM DS TAB1 EACH PO; +CEFUROXIME250 M1 PO; +PROTONIX20 M1 PO; +SPIRIVA18 MCG INH; +SYMBICORT 16010.2 GM INH
--- NOTE | 2017-11-29 06:05 | ED DYSPNEA/ASTHMA COMPLAINT ---
History of Present Illness General Chief Complaint: General Adult Stated Complaint: "I CANT BREATH" Source: patient, family, old records, EMS Exam Limitations: no limitations Vital Signs & Intake/Output Vital Signs & Intake/Output Vital Signs Date Time Temp Pulse Resp B/P B/P Pulse O2 O2 Flow FiO2 Mean Ox Delivery Rate 11/29 1040 99.5 108 22 160/75 94 Room Air Room Air 11/29 0854 98.4 101 19 137/66 96 Room Air 11/29 0830 98.7 11/29 0826 94 11/29 0653 98 Nasal 2.0L Cannula 11/29 0557 99 Nasal 2.0L Cannula 11/29 0539 22 95 Nasal 2.0L Cannula 11/29 0538 98.7 103 22 153/80 89 Room Air Allergies Coded Allergies: codeine (GI UPSET 11/12/17) morphine (VOMITS VIOLENTLY 11/12/17) Triage Note: PT TO ED C/O DIFF BREATHING. PT BROUGHT TO ER ROOM 10, REFUSED A WHEEL CHAIR. ON ARRIVAL TO ROOM O2 SAT 89% ON RA. PLACED ON 2L NC, O2 SAT IMPROVD TO 99% WITH REST. PT STATES SHE WAS ADMITTED TO [place] FOR PNA/BRONCHITIS/LEFT LUNG INFECTION 11/13-11/17. STATES SHE STOPPER HER INHALERS "ALBUTEROL, SPIRIVA AND PULMOCORT" A FEW DAYS AGO "BECAUSE THEY WERE HURTING MY MOUTH" "I WAS COUGHING UP YELLOW/GREEN SPUTUM BUT IT WAS BROWN JUST BEFORE I CAME IN" "I TOOK MY GABAPENTIN THIS MORNING BUT I DIDN'T TAKE MY 10 MG PREDNISONE" Triage Nurses Notes Reviewed? yes HPI: Patient presents for worsening shortness of breath since about 12:30 this morning. Patient states that she tried sitting up and hydrating herself with no improvement. In fact her breathing troubles got worse. She states in addition to her shortness of breath and a cough productive of a yellow-green and often brown phlegm she states that she is having a severe pinching sensation between the shoulder blades that gets worse with deep inspiration. She is also complaining of a left lateral chest pain that is similar to her prior pain she suffered with a recent pneumonia and bronchitis. She denies any fever over the past 24 hours. She discontinued taking her inhalers because it was making her mouth hurt. She is currently on a tapering dose of prednisone but was unable to take her prednisone today. She quit smoking about 8 years ago. (Danielle SANDHU,Carter Greenberg) Reconcile Medications Albuterol Sulfate (Proair Hfa) 90 MCG HFA.AER.AD 2 PUF INH Q4H PRN RESP. ( Reported) Benzonatate (Tessalon Perle) 100 MG CAPSULE 1 CAP PO TID PRN cough Budesonide/Formoterol Fumarate (Symbicort 160-4.5 Mcg Inhaler) 160 MCG-4.5 MCG/ ACTUATION HFA.AER.AD 2 PUF INH BID LUNG HEALTH . Clonazepam (Unknown Strength) TABLET 1-2 TAB PO QPM RLS (Reported) Gabapentin 300 MG CAPSULE 1 CAP PO TID NERVE PAIN (Reported) Pantoprazole Sodium (Protonix) 20 MG TABLET.DR 1 TAB PO DAILY LUNG HEALTH, Reflux .. Prednisone 10 MG TABLET 0 PO SEE ADMIN CRITERIA LUNG HEALTH take 5 pills daily from 11/17 to 11/29. then 4 pills daily for 3 days 3 pills daily for 3 days 2 pills daily for 3 days 1 pills daily for 3 days then stop. Tiotropium [place] (Spiriva) 18 MCG CAP.W.DEV 1 CAP INH DAILY LUNG HEALTH . Tramadol HCl 50 MG TABLET 1 TAB PO BIDP PRN PAIN (Reported) (Mike SANDHU,Shaggy Daly) Past History Travel History Traveled to [place] past 21 day No Medical History Any Pertinent Medical History? 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 No (Danielle SANDHU,Carter Greenberg) Review of Systems Review of Systems Constitutional: Reports: no symptoms. EENTM: Reports: no symptoms. Respiratory: Reports: see HPI. Cardiovascular: Reports: no symptoms. GI: Reports: no symptoms. Genitourinary: Reports: no symptoms. Musculoskeletal: Reports: no symptoms. Skin: Reports: no symptoms. Neurological/Psychological: Reports: no symptoms. Hematologic/Endocrine: Reports: no symptoms. Immunologic/Allergic: Reports: no symptoms. All Other Systems: Reviewed and Negative (Danielle SANDHU,Carter Greenberg) Physical Exam Physical Exam Respiratory: SEE BELOW Comments: Gen.: Well-nourished, well-developed, no acute respiratory distress. Head: Normocephalic, atraumatic. Eyes: Normal inspection bilaterally Ears: Normal inspection bilaterally Nose: Normal inspection Throat/mouth : Moist mucosa Neck: Supple, full range of motion, no goiter Heart: Regular rate and rhythm, no murmurs rubs or gallops Lungs: Decreased breath sounds bilaterally with end expiratory wheezing and mild crackles in the bases posteriorly. Chest: Nontender Back: Normal range of motion Abdomen: Soft, nontender, nondistended, normal bowel sounds Extremities: Normal range of motion grossly, equal radial pulses, no cyanosis, slight bilateral pretibial pitting edema, calves are slightly tender with palpation Neurologic: Cranial nerves grossly intact, speech is clear Skin: warm and dry Psychiatric: Calm, cooperative, no apparent delusions or hallucinations Core Measures ACS in differential dx? No CVA/TIA Diagnosis No Sepsis Present: No Sepsis Focused Exam Completed? No (Danielle SANDHU,Carter Greenberg) Progress Differential Diagnosis: asthma, bronchitis, CHF, COPD, pneumonia, pneumothorax Plan of Care: Orders Procedure Date/time Status Regular Diet 11/29 L Active Regular Diet 11/29 B Complete Telemetry/Campus Chaplain 11/29 06 Active TROPONIN LEVEL 11/29 06 Complete MAGNESIUM 11/29 06 Complete D-DIMER 11/29 06 Complete CBC WITHOUT DIFFERENTIAL 11/29 06 Complete B-TYPE NATRIURETIC PEP (BNP) 11/29 06 Complete BASIC METABOLIC PANEL 11/29 0604 Complete EKG 11/29 0604 Active Laboratory Tests 11/29/17 0615: Anion Gap 10, Estimated GFR > 60, BUN/Creatinine Ratio 25.7 H, Glucose 92, Calcium 9.2, Magnesium 2.1, Troponin I < 0.01, Nlb-O-Mskzwrucmia Pept 105, D- Dimer High Sensitivty < 200, CBC w Diff MAN DIFF ORDERED, RBC 4.30, MCV 87.7, MCH 28.9, MCHC 32.9 L, RDW 14.4, MPV 7.0 L, Gran % 70.2, Lymphocytes % 23.4, Monocytes % 4.6, Eosinophils % 1.3, Basophils % 0.5, Absolute Granulocytes 16.3 H, Segmented Neutrophils 56, Band Neutrophils 2, Absolute Lymphocytes 5.4 H, Lymphocytes 32, Monocytes 5, Absolute Monocytes 1.1 H, Eosinophils 3, Absolute Eosinophils 0.3, Basophils 1, Absolute Basophils 0.1, Metamyelocytes 1, Platelet Estimate ADEQUATE, Normocytic RBCs VERIFIED, Normochromic RBCs VERIFIED Initial ED EKG: NSR, rate (90), no ST T wave changes Prior EKG: unchanged Comments: 11/29/2017 7:33:20 AM patient states she is not feeling any better after the nebulizer treatment. I've begun to wean her oxygen given her 97% oxygen saturation currently. SHE will try another breathing treatment. 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 (Danielle SANDHU,Carter Greenberg) Comments: Patient ambulated on room air and her oxygen saturation remained at 95%. Patient did get symptomatic and had to stop because of shortness of breath however her sats never dropped below 95%. (Mike SANDHU,Shaggy Daly) Departure Departure Condition: Stable Clinical Impression Primary Impression: COPD exacerbation Departure Forms: Customer Survey General Discharge Information (Danielle SANDHU,Carter Greenberg) Departure Disposition: HOME OR SELF CARE Referrals: Carlos CAMARGO,Marianela Reyes (PCP/Family) Santana SANDHU,Simba Wilburn Additional Instructions: Follow-up with Dr. Dillon at your appointment this week. supervisor histology a nebulizer any way home from the emergency department. The nebulizer is 4 what are called the rescue medications. If you're feeling short of breath then you are to use the nebulizer. Your inhalers are for continuous treatment. You need to use her inhalers as prescribed. Your inhalers are attempting to prevent you from getting short of breath in the first place. Hold your Pulmicort until you finish the course of steroids. Once you finish the course of prednisone and then resume the Pulmicort. Make sure you rinse your mouth out after using the Pulmicort. The prednisone you are to start today. You are to take 4 pills a day for 3 days then 3 pills a day for 3 days then 2 pills a day for 3 days then 1 pill a day for 3 days and then stop. The nebulizer you are to the DuoNeb every 6 hours as needed for difficulty breathing. If you need for treatment in between the 6 hours then you may use the albuterol. Continue the antibiotics as prescribed. Follow-up with Dr. Dillon as mentioned above and return to the emergency department for any worsening symptoms or for any other concerns. (Mike SANDHU,Shaggy Daly) Critical Care Note Critical Care Note Critical Care Time: 30-74 min (Danielle SANDHU,Carter Greenberg)
[2017-11-29 06:34] LABS: ABSOLUTE BASOPHIL COUNT 0.1 /CUMM (0.0-0.2); ABSOLUTE EOSINOPHIL COUNT 0.3 /CUMM (0.0-0.7); ABSOLUTE GRANULOCYTE CT 16.3 /CUMM (1.4-6.5); ABSOLUTE LYMPH COUNT 5.4 /CUMM (1.2-3.4); ABSOLUTE MONOCYTE COUNT 1.1 /CUMM (0.10-0.60); BASOPHIL % 0.5 % (0.0-2.0); EOSINOPHIL % 1.3 % (0-5); GRANULOCYTE % 70.2 % (42.2-75.2); HEMATOCRIT 37.7 % (37-47); MEAN CORPUSCULAR HGB 28.9 PG (27.0-31.0); MEAN CORPUSCULAR HGB CONC 32.9 G/DL (33.0-37.0); MEAN CORPUSCULAR VOLUME 87.7 FL (81.0-99.0); PLATELET COUNT 378 /CUMM (130-400); RBC DISTRIBUTION WIDTH 14.4 % (11.5-14.5); WHITE BLOOD CELL COUNT 23.3 /CUMM (4.8-10.8)
--- NOTE | 2017-11-29 06:46 | RADIOLOGY REPORT ---
EXAMINATION: XR CHEST CLINICAL INFORMATION: Dyspnea. Wheezing. Left-sided chest pain. COMPARISON: Chest x-ray November 28, 2017 TECHNIQUE: 2 views of the chest were obtained. FINDINGS: Lungs are clear. No pulmonary vascular congestion. There is no pleural effusion. The heart size is normal. The cardiac and mediastinal contours are normal. There are multilevel degenerative changes of dorsal spine. IMPRESSION: Unremarkable examination.
[2017-11-29 10:40] VITALS: BP 160/75
== END 2017-11-29 10:56 ==
LOC: ERH 05:28
PROVIDERS: Emergency Medicine
DX: J44.1 Chronic obstructive pulmonary disease with (acute) exacerbation (principal); Z87.891 Personal history of nicotine dependence
CPT/HCPCS: 1263; 71046; 93005; 93010; 96365; 96375; J0131; J2930